=== PATIENT | female | born 1970 | race Caucasian/White ===

== ENCOUNTER 2019-04-12 08:38 | Emergency (ER) | payer OTHER, SELFPAY ==
[2019-04-12] VITALS (13 sets, daily range): BP systolic 90–147; BP diastolic 61–75; PULSE 48–68; RESP 9–19; TEMP 36.6; O2SAT 93–100
--- NOTE | 2019-04-12 08:57 | ED.GENADUL_ITS ---
Discharge Plan Disposition Patient Disposition: HOME Condition: Stable Discharge Details Chief Complaint: SOB Clinical Impression: COPD exacerbation Primary Care Provider: Guicho Walton ED Provider: Amor Akhtar Home Meds and New Rx's Prescriptions: New prednisone 20 mg tablet 60 mg PO DAILY 4 Days Qty: 12 RF: 0 levofloxacin 750 mg tablet 750 mg PO DAILY Qty: 5 RF: 0 Continued naproxen sodium [Aleve] 220 MG tablet 440 mg PO BID RF: 0 acetaminophen [Tylenol] 325 MG tablet 500 mg PO PRN RF: 0 cholecalciferol (vitamin D3) 1,000 UNIT capsule 1,000 unit PO DAILY RF: 0 magnesium oxide 500 MG capsule 500 mg PO DAILY RF: 0 bupropion HCl [Wellbutrin SR] 150 mg tablet sustained-release 12 hr 150 mg PO DAILY Qty: 90 RF: 3 albuterol sulfate [ProAir HFA] 90 mcg/actuation HFA aerosol inhaler 1 - 2 puff Inhalation Q6H PRN Qty: 1 RF: 1 loratadine 10 MG tablet 10 mg PO DAILY RF: 0 calcium carbonate 500 MG tablet,chewable 500 mg CH PRN PRNRF: 0 Discharge Instructions Instructions: COPD (Chronic Obstructive Pulmonary Disease) (ED) Additional Instructions: follow up with your primary care provider within 1-2 weeks if you feel you are becoming more ill, having worsening shortness of breath or severe chest pain return to the emergency department Medical Decision Making 49 yo female with hx of gerd, copd, chronic smoker, who comes in with chief complaint of shortness of breath and productive cough for 2 days that has been worsening. She is speaking in full sentences on exam in no distress but is noted to have diffuse wheezing on exam likely from a copd exacerbation, will tx with neb and steroids and reassess. She is wells low and perc negative so doubt Pe at this time. Will obtain cxr to eval for possible infiltrate. pt remains stable and feels much better and only has mild apical wheezing on exam. Labs unremarkable. Will tx as copd exacerbation and advised f/u with pcp and return precautions given Differential Diagnosis chf, copd, asthma, pna Medical Records Medical records reviewed: Yes I reviewed the patient's medical records. Imaging Data Radiologic Study: Attestation: I personally reviewed and interpreted this imaging study as follows: Imaging: X-Ray My impression: no acute findings Lab Data Lab results reviewed: Yes I reviewed the patient's lab results. ECG Data Attestation: I personally reviewed and interpreted this ECG (s) as follows: Prior ECG tracings: not available for review Interpretation: sinus rhythm, rate of 56, qtc 434, no acute ischemic st t wave findings HPI General Mode of arrival: wheelchair . Date/Time Provider Initiated Documentation: 04/12/19 08:48 . Limitations to Documentation: no limitations . Information obtained by: patient . History of Present Illness 49 year old F presents to the emergency department with the chief complaint of short of breath, described as moderate, Patient started experiencing this day(s) (2) and it has been constant. No relieving factors improve symptom(s), No exacerbating factors reported . Patient notes cough. Patient did receive the following treatments prior to arrival, other (inhaler) Related Data Home Medications Medication Instructions Recorded Confirmed naproxen sodium [Aleve] 440 mg PO BID tab-cap 09/04/16 03/27/19 calcium carbonate 500 mg CH PRN PRN 11/18/16 03/27/19 loratadine 10 mg PO DAILY 11/18/16 03/27/19 acetaminophen [Tylenol] 500 mg PO PRN tab-cap 04/04/18 03/27/19 cholecalciferol (vitamin D3) 1,000 unit PO DAILY 04/04/18 03/27/19 magnesium oxide 500 mg PO DAILY 04/04/18 03/27/19 bupropion HCl SR 150 mg tablet,12 150 mg PO DAILY #90 tab-cap 09/30/18 03/27/19 hr sustained-release albuterol sulfate HFA 90 1 - 2 puff INHALATION Q6H PRN #1 10/12/18 03/27/19 mcg/actuation aerosol inhaler inhaler levofloxacin 750 mg PO DAILY #5 tab 04/12/19 prednisone 60 mg PO DAILY 4 Days #12 tab 04/12/19 Previous Rx's Medication Instructions Recorded bupropion HCl SR 150 mg tablet,12 150 mg PO DAILY #90 tab-cap 09/30/18 hr sustained-release albuterol sulfate HFA 90 1 - 2 puff INHALATION Q6H PRN #1 10/12/18 mcg/actuation aerosol inhaler inhaler levofloxacin 750 mg PO DAILY #5 tab 04/12/19 prednisone 60 mg PO DAILY 4 Days #12 tab 04/12/19 Allergies Allergy/AdvReac Type Severity Reaction Status Date / Time sertraline HCl [From Zoloft] Allergy Severe Anaphylaxsi Unverified 04/04/18 09:09 s adhesive tape Allergy Skin Rash Unverified 04/04/18 09:09 ibuprofen AdvReac Intermediate Contraindic Unverified 04/04/18 09:09 ated morphine AdvReac Intermediate Nausea, Unverified 04/04/18 09:09 vomiting severe General Stated Complaint: SOB RUBY: 3 Review of Systems Review of Systems All systems reviewed & are unremarkable except as noted in HPI and below Constitutional Denies weakness Cardiovascular Denies chest pain Gastrointestinal Denies abdominal pain, Denies nausea and Denies vomiting Integumentary/Breasts Denies rash Neurologic Denies weakness PFSH Surgical History Cholecystectomy Hysterectomy, Laproscopic Ligation of fallopian tube Repair, ACL Rotator Cuff Repair Family History Mother Diabetes Heart disease Father No problems noted. Social History Smoking/Tobacco Use Status: Current every day Tobacco Type: cigarettes Smoking cigarettes per day: 5 Alcohol Intake: current Alcohol Intake frequency: a few times a month Alcohol type: hard liquor Drug use: Daily Substance use type: marijuana Do you feel safe at home: Yes Do you feel safe in your relationship?: Yes Exam Const General: no acute distress Orientation: alert HENMT Head: normal to inspection Ears: external ears normal General nose exam: external nose normal Mouth: moist mucous membranes Eyes General: appearance normal, both eyes and all related structures Neck Neck: normal visual inspection Resp Effort & Inspection: normal respiratory effort and able to speak in complete sentences Cardio Rate: regular rate Skin General skin exam: no rashes or lesions noted Neuro General: alert and oriented x3 Extrem General: normal to inspection Psych Mental Status: mental status grossly normal Course Vital Signs Temperature 36.6 C 04/12/19 08:45 Pulse 68 04/12/19 08:45 Respiratory Rate 18 04/12/19 08:45 Blood Pressure 147/71 H 04/12/19 08:45 Pulse Oximetry 95 04/12/19 08:45 Temperature 36.6 C 04/12/19 08:45 Temperature Source Tympanic 04/12/19 08:45 Pulse 68 04/12/19 08:45 Respiratory Rate 18 04/12/19 08:48 Respiratory Effort Labored 04/12/19 08:48 Respiratory Depth Shallow 04/12/19 08:48 Respiratory Pattern Normal 04/12/19 08:48 Blood Pressure 147/71 H 04/12/19 08:45 Pulse Oximetry 95 04/12/19 08:45 Oxygen Delivery Method Room Air 04/12/19 08:45 Oxygen Flow Rate 0 04/12/19 08:45 Pain Level 4 04/12/19 08:45 Comment 04/12/19 08:45
[2019-04-12] MEDS: Albuterol/Ipratropium 3 ML UPD VIAL UPD (09:02)
[2019-04-12] MEDS: methylPREDNISolone SUCC 125 MG VIAL IVP (09:04)
[2019-04-12] MEDS: Normal Saline 1,000 ML 1000 ML IV (09:05)
--- NOTE | 2019-04-12 09:11 | DI.RAD_ITS ---
SYMPTOM/DIAGNOSIS: COUGH, SOB PORTABLE AP CHEST: No prior comparison exams are available. The exam is somewhat limited by penetration and patient body habitus. The lungs are moderately inflated. The heart size is within normal limits for projection. The lungs are grossly clear. IMPRESSION: No acute abnormality.
[2019-04-12 09:16] LABS: Abs Immature Grans 0.03 k/cumm (0.0-0.09); Absolute Basophil Count 0.01 k/cumm (0.0-0.2); Absolute Eosinophil Count 0.12 k/cumm (0.0-0.7); Absolute Lymphocyte Count 1.94 k/cumm (1.2-3.4); Absolute Monocyte Count 0.68 k/cumm (0.11-0.7); Absolute Neutrophil Count 4.46 k/cumm (1.2-6.7); Basophils % 0.1; Eosinophils % 1.7; HCT 38.8 % (36.0-46.0); HGB 12.6 g/dL (12.0-15.5); Immature Grans % 0.4; Lymphocytes % 26.8; Mean Corp. HGB Concentration 32.5 g/dL (32.0-36.0); Mean Corpuscular Hemoglobin 29.6 pg (27.0-33.0); Mean Corpuscular Volume 91.1 fL (80-95); Mean Platelet Volume 9.9 fL (8.0-11.0); Monocytes % 9.4; Neutrophils % 61.6; Platelet Count 298 x1000/uL (130-400); RBC 4.26 m/cumm (4.00-5.20); White Blood Cell Count 7.24 k/cumm (4.4-10.8)
[2019-04-12 09:32] LABS: ALT 43 U/L (12-78); AST 25 U/L (15-37); Albumin 3.5 g/dL (3.4-5.0); Alkaline Phosphatase 73 U/L (46-116); Anion Gap 11.6 mmol/L (3-11); BUN 14 mg/dL (7-18); Bilirubin, Total 0.3 mg/dL (0.2-1.0); CO2 23.4 mmol/L (21.0-32.0); CREATININE 0.79 mg/dL (0.55-1.02); Calcium 9.1 mg/dL (8.5-10.1); Chloride 104 mmol/L (98-107); Glucose 107 mg/dL (70-100); Magnesium 1.9 mg/dL (1.8-2.4); Potassium 3.9 mmol/L (3.5-5.1); Sodium 139 mmol/L (136-145); Total Protein 7.5 g/dL (6.4-8.2)
[2019-04-12 09:34] LABS: Troponin I < 0.02 ng/mL (0.00-0.06)
== END 2019-04-12 10:08 | disposition home or self-care (01) ==
PROVIDERS: Emergency Provider Emergency Medicine; PCP Family Medicine
DX: J44.0 Chronic obstructive pulmonary disease with (acute) lower respiratory infection (principal); F17.210 Nicotine dependence, cigarettes, uncomplicated
CPT/HCPCS: 36415; 80053; 93005; 94640; 96361; 96374; 99285; 71045; 83735; 84484; 85025; 93010; J2930; J7620

== ENCOUNTER 2019-07-28 03:50 | Outpatient (CLI) | payer OTHER, SELFPAY ==
[2019-07-28 11:22] LABS: Hemoglobin A1C 6.9 % (4.5-6.2)
[2019-07-28 11:28] LABS: Glucose 98 mg/dL (70-100); TSH (W/Ref FT4) 2.55 uIU/mL (0.36-3.74)
== END 2019-07-28 04:10 ==
PROVIDERS: PCP Family Medicine; Visit Provider Family Medicine
DX: R63.5 Abnormal weight gain (principal)
CPT/HCPCS: 36415; 82947; 83036; 84443

== ENCOUNTER 2019-10-06 09:35 | Outpatient (CLI) | payer OTHER, SELFPAY | END 2019-10-06 09:55 | PROVIDERS: PCP Family Medicine; Visit Provider Physician Assistant | DX: R69 Illness, unspecified (principal) ==

== ENCOUNTER 2019-12-01 09:19 | Outpatient (CLI) | payer OTHER, SELFPAY ==
--- NOTE | 2019-12-01 09:15 | DI.RAD_ITS ---
EXAM: XR STANDING ALIGNMENT CLINICAL HISTORY: f/u bilateral knee OA TECHNIQUE: COMPARISON: No exams were available for comparison FINDINGS: AP views of the lower extremities were obtained for leg length determination. Femoral heads are not included on the views obtained. There are moderate degenerative changes involving the joints of both knees, most marked involving the medial tibiofemoral joint on left. IMPRESSION:
--- NOTE | 2019-12-01 09:29 | DI.RAD_ITS ---
EXAM: XR KNEE LT 2V AP,LAT CLINICAL HISTORY: f/u L knee OA TECHNIQUE: COMPARISON: LEFT KNEE 3 VIEW COMPLETE from 01/28/2015 FINDINGS: Two views were obtained. There is medial subluxation of the femur on the tibia. There are prominent hypertrophic degenerative changes involving all 3 joints of the knee. No other significant bony abn ormality seen. IMPRESSION:
--- NOTE | 2019-12-01 09:31 | DI.RAD_ITS ---
EXAM: XR KNEE RT 2V AP,LAT CLINICAL HISTORY: f/u bilateral knee OA TECHNIQUE: COMPARISON: XR KNEE LT 2V AP,LAT from 12/01/2019 FINDINGS: Two views were obtained. There is probable narrowing of the cartilaginous joint spaces of all 3 join ts of the knee. Prominent marginal osteophytes noted involving all 3 joints as well. No other signi ficant bony abnormality seen. IMPRESSION: Severe multi compartment DJD.
== END 2019-12-01 09:39 ==
PROVIDERS: PCP Family Medicine; Visit Provider Student in an Organized Health Care Education/Training Program
DX: M17.0 Bilateral primary osteoarthritis of knee (principal)
CPT/HCPCS: 73560; 77073

== ENCOUNTER 2020-01-08 08:54 | Emergency (ER) | payer OTHER, SELFPAY ==
[2020-01-08 09:03] VITALS: BP 140/90; PULSE 72; RESP 16; TEMP 36.4; O2SAT 97
--- NOTE | 2020-01-08 09:30 | DI.RAD_ITS ---
EXAM: XR HAND LT COMPLETE and XR wrist left complete INDICATION: trauma, pain 5 metacarpal and 5th digit. COMPARISON: XR WRIST LT COMPLETE from 01/08/2020 TECHNIQUE: 2D digital imaging was performed. FINDINGS: On the lateral view of the hand, there is a lucency through the triquetrum on the dorsum of the wrist . This is best appreciated on the lateral view. The findings raise a question of a nondisplaced tri quetral fracture. No other fracture or dislocation is seen in the left hand or wrist. The soft tiss ues are unremarkable. There are mild degenerative changes seen at the 1st carpometacarpal joint. IMPRESSION: Question of a nondisplaced fracture involving the triquetrum suggested on the lateral view of the bess d. Findings were discussed with the emergency department on the date of the examination.
--- NOTE | 2020-01-08 09:30 | DI.RAD_ITS ---
EXAM: XR SHOULDER RT COMPLETE 2+V INDICATION: trauma, shoulder pain. COMPARISON: RIGHT SHOULDER 1 VIEW from 08/16/2014 TECHNIQUE: 2D digital imaging was performed. FINDINGS: No acute fracture or dislocation is seen. Postsurgical changes are seen in the humeral head. There is resection of the distal clavicle. Glenohumeral joint is unremarkable. Soft tissues are unremarka ble. IMPRESSION: No acute fracture or dislocation.
--- NOTE | 2020-01-08 09:38 | ED.GENADUL_ITS ---
Discharge Plan Disposition Patient Disposition: HOME Condition: Stable Discharge Details Chief Complaint: Trauma Clinical Impression: Contusion, Left wrist sprain Primary Care Provider: Guicho Walton ED Provider: Brenna Cheng Home Meds and New Rx's Prescriptions: Continued calcium carb-mag ox-zinc gluc 333-133-5 mg tablet PO DAILY RF: 0 naproxen sodium [Aleve] 220 mg capsule 440 mg PO BID RF: 0 bupropion HCl [Wellbutrin SR] 150 mg tablet sustained-release 12 hr 150 mg PO Q12H Qty: 180 RF: 3 acetaminophen [Tylenol] 325 MG tablet 500 mg PO PRN RF: 0 cholecalciferol (vitamin D3) 1,000 UNIT capsule 1,000 unit PO DAILY RF: 0 albuterol sulfate [ProAir HFA] 90 mcg/actuation HFA aerosol inhaler 1 - 2 puff Inhalation Q6H PRN Qty: 1 RF: 1 loratadine 10 MG tablet 10 mg PO DAILY RF: 0 ascorbic acid (vitamin C) [Vitamin C] 500 mg Tablet 500 mg PO DAILY RF: 0 magnesium 250 mg Tablet 250 mg PO DAILY RF: 0 Discharge Instructions Instructions: Contusion in Adults (ED), Wrist Sprain (ED) Additional Instructions: Please return immediately to the emergency department if you develop any new or worsening symptoms, if your condition does not improve as expected, or if you become otherwise concerned. It is extremely important that you call soon as possible to make an appointment to be seen in follow-up for this visit by your primary care doctor and also by your orthopedic surgeon. Referrals: Alex Collier MD [ [facility] STAFF PHYSICIAN] - Discharge Data Discharge Date/Time-TO BE ENTERED AT DEPARTURE: 01/08/20 12:02 Medical Decision Making Sofi Do is a 49-year-old woman with h/o copd, depression presenting to the emergency department with right shoulder pain, neck pain, right elbow pain, left wrist pain, left hand pain, right knee pain after fall. On exam patient is very well and nontoxic-appearing. No bony cervical spine tenderness palpation, full range of motion of the neck. Elbow and knee nontender to palpation with full range of motion. Shoulder diffusely mildly tender to palpation without focality, range of motion somewhat limited secondary to pain. Wrist tender to palpation over ulnar aspect, hand tender over fifth metacarpal and fifth digit. Normal range of motion of digit and wrist. No overlying skin changes to any of the extremities except for abrasion to right elbow, tetanus up-to-date. Benign cardiopulmonary exam. Concern for possible fracture versus soft tissue injury of shoulder, wrist, hand. Exam/history at this time is not consistent with bony injury to the knee, elbow, or cervical spine, significant trauma to the head/thorax/abdomen, or nonmechanical etiology of fall, other acute emergent life-threatening process. Plan for x-ray shoulder, wrist, hand. Per radiology possible triquetrum fracture on wrist/hand x-ray. This is not necessarily correlate clinically with patient's exam. I discussed patient presentation results with Dr. Collier of orthopedic surgery, who reviewed x- ray. Dr. Collier does not feel that x-ray finding represents fracture. He requests commercial wrist splint, outpatient follow-up with orthopedics. I had a lengthy discussion with Patient regarding return to emergency department precautions, home care, and importance of outpatient follow-up. Pt verbalizes understanding of the plan and is amenable. Patient discharged to home with clear plan for outpatient follow-up. All questions were answered. Disposition decision was made weighing the risks and benefits of hospitalization versus outpatient treatment, the risk for further decompensation, and the patient's wishes. Medical Records Medical records reviewed: Yes I reviewed the patient's medical records. Imaging Data Radiologic Study: Attestation: I personally reviewed and interpreted this imaging study as follows: Radiologist's impression: EXAM: XR HAND LT COMPLETE and XR wrist left complete INDICATION: trauma, pain 5 metacarpal and 5th digit. COMPARISON: XR WRIST LT COMPLETE from 01/08/2020 TECHNIQUE: 2D digital imaging was performed. FINDINGS: On the lateral view of the hand, there is a lucency through the triquetrum on the dorsum of the wrist. This is best appreciated on the lateral view. The findings raise a question of a nondisplaced triquetral fracture. No other fracture or dislocation is seen in the left hand or wrist. The soft tissues are unremarkable. There are mild degenerative changes seen at the 1st carpometacarpal joint. IMPRESSION: Question of a nondisplaced fracture involving the triquetrum suggested on the lateral view of the hand. EXAM: XR SHOULDER RT COMPLETE 2+V INDICATION: trauma, shoulder pain. COMPARISON: RIGHT SHOULDER 1 VIEW from 08/16/2014 TECHNIQUE: 2D digital imaging was performed. FINDINGS: No acute fracture or dislocation is seen. Postsurgical changes are seen in the humeral head. There is resection of the distal clavicle. Glenohumeral joint is unremarkable. Soft tissues are unremarkable. IMPRESSION: No acute fracture or dislocation. HPI General Mode of arrival: ambulatory . Date/Time Provider Initiated Documentation: 01/08/20 09:05 . Limitations to Documentation: no limitations . Information obtained by: patient, RN notes reviewed and old records reviewed . HPI Narrative: Sofi Do is a 49 y/o woman with h/o copd, depression presenting to the emergency department with shoulder pain, neck pain, elbow pain, wrist pain, hand pain, knee pain after fall. Patient reports that she was at work this morning, and was bringing trash outside to put in dumpster when she slipped and fell on ice. Patient reports the fall was mechanical, and she had no preceding symptoms. Patient reports that she initially fell against a wall, and then fell to the ground. She denies any loss of consciousness and states that she remembers the event in its entirety. Patient reports that she hit her right knee and right shoulder, and landed on her left wrist/hand. She reports aching pain in her right shoulder, right elbow, right knee, left hand, left wrist, and right neck. When asked her worst pain is, patient reports right shoulder and left wrist/hand. She denies any other pain. Fall occurred at approximately 730 this morning. Patient reports that she has been walking without issue since that time. Patient reports that she was previously in her usual state of health. She denies fevers, vomiting, diarrhea, numbness, weakness, rash. Patient reports shortness of breath and cough at baseline, secondary to COPD. Patient reports she has been eating and drinking as usual. Related Data Home Medications Medication Instructions Recorded Confirmed loratadine 10 mg PO DAILY 11/18/16 01/08/20 acetaminophen [Tylenol] 500 mg PO PRN tab-cap 04/04/18 01/08/20 cholecalciferol (vitamin D3) 1,000 unit PO DAILY 04/04/18 01/08/20 albuterol sulfate 90 mcg/actuation 1 - 2 puff INHALATION Q6H PRN #1 10/12/18 01/08/20 aerosol inhaler inhaler bupropion HCl 150 mg tablet,12 hr 150 mg PO Q12H #180 tab-cap 07/25/19 01/08/20 sustained-release calcium carbonate 333 mg-magnesium tab PO DAILY tab 07/25/19 12/01/19 oxide 133 mg-zinc gluc 5 mg tablet naproxen sodium 220 mg capsule 440 mg PO BID cap 07/25/19 01/08/20 ascorbic acid (vitamin C) [Vitamin 500 mg PO DAILY 01/08/20 01/08/20 C] magnesium 250 mg PO DAILY 01/08/20 01/08/20 Previous Rx's Medication Instructions Recorded albuterol sulfate 90 mcg/actuation 1 - 2 puff INHALATION Q6H PRN #1 10/12/18 aerosol inhaler inhaler bupropion HCl 150 mg tablet,12 hr 150 mg PO Q12H #180 tab-cap 07/25/19 sustained-release Allergies Allergy/AdvReac Type Severity Reaction Status Date / Time sertraline HCl [From Zoloft] Allergy Severe Anaphylaxsi Unverified 01/08/20 09:07 s adhesive tape Allergy Skin Rash Unverified 01/08/20 09:07 ibuprofen AdvReac Intermediate Contraindic Unverified 01/08/20 09:07 ated morphine AdvReac Intermediate Nausea, Unverified 01/08/20 09:07 vomiting severe General Stated Complaint: Trauma RUBY: 3 Review of Systems Narrative: Constitutional: denies fevers Eyes: denies eye pain ENT: denies ear pain, dental pain, sore throat Cardiovascular: denies chest pain Respiratory: denies SOB, cough GI: denies abdominal pain, vomiting, diarrhea : denies flank pain MSK: denies back pain, myalgias, reports neck pain, right shoulder pain, right elbow pain, left wrist pain, left hand pain, right knee pain Skin: denies rash Neuro: denies headaches, numbness, weakness [facility] Surgical History (Updated 04/20/19 @ 09:18 by uHy Gonsalez) Cholecystectomy Hysterectomy, Laproscopic 2006; OVARIES REMAIN Ligation of fallopian tube Repair, ACL RIGHT Rotator Cuff Repair 08/07/14; RIGHT Family History Mother Diabetes Heart disease Father , SUICIDE No problems noted. Social History Smoking/Tobacco Use Status: Current every day Tobacco Type: cigarettes Alcohol Intake: current Alcohol Intake frequency: a few times a week Alcohol type: hard liquor Drug use: Daily Substance use type: marijuana Current gender identity: female Do you feel safe at home: Yes Do you feel safe in your relationship?: Yes Exam Narrative Exam Narrative: Constitutional: well and [id number], pleasant, conversing normally HENT: head atraumatic/normocephalic/normal inspection, mucous membranes moist Eyes: conjunctiva normal, sclera normal, pupils 3mm b/l Neck: no stridor, full painless ROM, trachea midline, cervical spine nontender to palpation/no crepitus/no deformity, no left paraspinal tenderness palpation, positive left paraspinal tenderness to palpation Resp: normal work of breathing, LCTAB Cardio: normal rate, normal rhythm, no murmur appreciated Skin: warm, dry, normal color, no rash Neuro: alert, not altered, grossly non-focal, normal tone Ext: no edema, right elbow and knee nontender to palpation with full range of motion. Right shoulder diffusely mildly tender to palpation without focality, range of motion somewhat limited secondary to pain. Left wrist tender to palpation over ulnar aspect, left hand hand tender over fifth metacarpal and fifth digit. No snuffbox tenderness to palpation. normal range of motion of digit and wrist. No overlying skin changes to any of the extremities except 1 x 1 cm superficial abrasion to right elbow. Radial pulses intact and symmetric. Normal sensation bilateral upper extremities. Psych: normal mood, normal affect, normal behavior Course Vital Signs Vital signs: Vital Signs Temperature 36.4 C L 01/08/20 09:03 Pulse 72 01/08/20 09:03 Respiratory Rate 16 01/08/20 09:03 Blood Pressure 140/90 01/08/20 09:03 Pulse Oximetry 97 01/08/20 09:03 Temperature 36.4 C L 01/08/20 09:03 Temperature Source Skin 01/08/20 09:03 Pulse 72 01/08/20 09:03 Respiratory Rate 16 01/08/20 09:03 Respiratory Effort Non-Labored 01/08/20 09:03 Blood Pressure 140/90 01/08/20 09:03 Blood Pressure Position Sitting 01/08/20 09:03 Pulse Oximetry 97 01/08/20 09:03 Oxygen Delivery Method Room Air 01/08/20 09:03 Oxygen Flow Rate 0 01/08/20 09:03 Pain Level 7 01/08/20 09:03
[2020-01-08 12:00] VITALS: BP 133/94; PULSE 68; RESP 16; O2SAT 100
== END 2020-01-08 12:02 | disposition home or self-care (01) ==
PROVIDERS: Emergency Provider Student in an Organized Health Care Education/Training Program; PCP Family Medicine
DX: S63.502A Unspecified sprain of left wrist, initial encounter (principal); S40.011A Contusion of right shoulder, initial encounter; S50.311A Abrasion of right elbow, initial encounter; W00.0XXA Fall on same level due to ice and snow, initial encounter; Y99.0 Civilian activity done for income or pay; J44.9 Chronic obstructive pulmonary disease, unspecified; F17.210 Nicotine dependence, cigarettes, uncomplicated
CPT/HCPCS: 29125; 99284; 73030; 73110; 73130; L0172; L3908

== ENCOUNTER 2020-01-19 09:59 | Outpatient (CLI) | payer OTHER, SELFPAY ==
--- NOTE | 2020-01-19 09:15 | DI.RAD_ITS ---
EXAM: XR WRIST LT LIMITED INDICATION: f/u L wrist pain s/p fall. COMPARISON: XR WRIST LT COMPLETE from 01/08/2020 XR HAND LT COMPLETE from 01/08/2020 TECHNIQUE: 2D digital imaging was performed. FINDINGS: On the lateral view, there is again noted to be an apparent fracture through the posterior aspect of the triquetrum. It is nondisplaced. Degenerative changes are seen at the 1st carpal metacarpal deonte nt. DATA REPOSITORY: RADIATION DOSE DELIVERED:
== END 2020-01-19 10:19 ==
PROVIDERS: PCP Family Medicine; Visit Provider Student in an Organized Health Care Education/Training Program
DX: M25.532 Pain in left wrist (principal); S62.115D Nondisplaced fracture of triquetrum [cuneiform] bone, left wrist, subsequent encounter for fracture with routine healing; M18.12 Unilateral primary osteoarthritis of first carpometacarpal joint, left hand
CPT/HCPCS: 73100

== ENCOUNTER 2020-02-23 00:25 | Outpatient (CLI) | payer OTHER, SELFPAY ==
--- NOTE | 2020-02-23 06:15 | DI.MRI_ITS ---
EXAM: MR UPPER JOINT RT WO CLINICAL HISTORY: S/P FALL,FULL THICKNESS ROTATOR CUFF TEAR,M75.120, SHOULDER PAIN. TECHNIQUE: Multiplanar multisequence MRI was performed. COMPARISON: Plain films dated 08 January 2020 which shows metallic anchors in the humeral head.. FINDINGS: The exam is limited by patient body habitus and metallic artifact from prior surgery. There is no fracture or contusion pattern. There has been resection of the distal clavicle. There is mild spurring at the undersurface of the a cromion. There is a small amount of fluid in the subacromial subdeltoid bursa. No subcoracoid or glenohumeral joint effusion is present. The supraspinatus tendonis difficult to evaluate due to metallic artifact. There is no evidence of a full-thickness tear or retraction. There is mild supraspinatus and infraspinatus muscle atrophy. The infraspinatus tendon is intact. The subscapularis and teres minor tendons are normal. The biceps tendon is normally located. The anchor is well maintained. The labrum is grossly within normal limits. IMPRESSION: Limited exam due to patient body habitus and metallic artifact. There is no full-thickness tear of t he supraspinatus tendon. A partial tear cannot be excluded. Mild muscular atrophy of this supraspin atus and infraspinatus is seen. DATA REPOSITORY:
== END 2020-02-23 00:45 ==
PROVIDERS: PCP Family Medicine; Visit Provider Student in an Organized Health Care Education/Training Program
DX: M25.511 Pain in right shoulder (principal); M62.511 Muscle wasting and atrophy, not elsewhere classified, right shoulder; M75.121 Complete rotator cuff tear or rupture of right shoulder, not specified as traumatic
CPT/HCPCS: 73221

== ENCOUNTER 2020-10-02 08:26 | Outpatient (CLI) | payer OTHER, SELFPAY ==
[2020-10-06 11:28] LABS: Patient Race White; SARS-CoV-2 RNA Undetected (Undetected); SARS-CoV-2 Specimen Source Nasal
== END 2020-10-02 08:46 ==
PROVIDERS: PCP Family Medicine; Visit Provider Family Medicine
DX: R51.9 Headache, unspecified (principal); R68.83 Chills (without fever)
CPT/HCPCS: U0003

== ENCOUNTER 2020-12-27 00:59 | Outpatient (CLI) | payer OTHER, SELFPAY ==
[2020-12-28 11:32] LABS: COVID-19 RT-PCR UVMMC Result Negative (Negative)
== END 2020-12-27 01:00 | disposition home or self-care (01) ==
LOC: LBO 01:00
PROVIDERS: PCP Family Medicine; Visit Provider Student in an Organized Health Care Education/Training Program
DX: Z20.822 Contact with and (suspected) exposure to COVID-19 (principal); Z01.818 Encounter for other preprocedural examination
CPT/HCPCS: U0003

== ENCOUNTER 2021-01-01 07:58 | Day surgery (SDC) | payer OTHER, SELFPAY ==
[2021-01-01] VITALS (9 sets, daily range): BP systolic 108–132; BP diastolic 66–93; PULSE 54–76; RESP 16–23; TEMP 36–36.7; O2SAT 94–100
[2021-01-01] MEDS: Lactated Ringers 1,000 ML 80 ML IV (08:43)
--- NOTE | 2021-01-01 09:57 | PDOC.DSDIS_ITS ---
Discharge Plan Disposition Patient Disposition: HOME Condition: Good Discharge Details Reason For Visit: Right shoulder arthroscopy Attending Provider: Alex Collier Primary Care Provider: Guicho Walton Home Meds and New Rx's Prescriptions: New hydrocodone-acetaminophen 5-325 mg tablet 1 tab PO Q6H PRN (Reason: pain) Qty: 14 RF: 0 acetaminophen 500 mg capsule 500 mg PO Q6H PRN (Reason: pain) Qty: 30 RF: 0 ibuprofen 600 mg tablet 600 mg PO TID PRN (Reason: pain) Qty: 30 RF: 0 Continued potassium chloride 10 mEq capsule, extended release 10 meq PO DAILY RF: 0 cholecalciferol (vitamin D3) 1,000 UNIT capsule 1,000 unit PO DAILY RF: 0 albuterol sulfate [ProAir HFA] 90 mcg/actuation HFA aerosol inhaler 1 - 2 puff Inhalation Q6H PRN Qty: 1 RF: 1 bupropion HCl [Wellbutrin SR] 150 mg tablet sustained-release 12 hr 150 mg PO Q12H Qty: 180 RF: 3 loratadine 10 MG tablet 10 mg PO DAILY RF: 0 ascorbic acid (vitamin C) [Vitamin C] 500 mg Tablet 500 mg PO DAILY RF: 0 magnesium 250 mg Tablet 250 mg PO DAILY RF: 0 omeprazole 20 mg Tablet,Delayed Release (Dr/Ec) 20 mg PO DAILY RF: 0 Discontinued naproxen sodium [Aleve] 220 mg capsule 440 mg PO DAILY RF: 0 acetaminophen [Tylenol] 325 MG tablet 500 mg PO PRN RF: 0 Discharge Instructions Stand Alone Forms: Amira Conrad w/RCR Referrals: Alex Collier MD [ [facility] STAFF PHYSICIAN] - Equipment/Supplies: Sling Activity:: Elevate Remove Dressings/Wound Care:: 72 hours Shower/Bathe:: 72 hours Diet:: As Tolerated Discharge Orders Discharge Orders: Discharge Order (Routine); Ordered 01/01/21 Ordered By: Bam Velasquez DS: Diagnosis Discharge Diagnosis (1) Right rotator cuff tendonitis: Status: Acute
[2021-01-01] MEDS: ceFAZolin 3,000 MG in Normal Saline 100 ML 200 MG IVPB (10:41)
[2021-01-01] MEDS: EPINEPHrine 1 MG/ML AMP pres-free (12:19)
--- NOTE | 2021-01-01 12:27 | ROE_ITS ---
Date of service: 01/01/21 Time of Service: 12:34 Operative Note Operative Note DATE OF PROCEDURE: 01/01/21 PRE-OP DIAGNOSIS: Right Rotator Cuff Tendinitis, BIceps Tendinitis POST-OP DIAGNOSIS: other (Right Rotator Cuff Tear and Right SLAP Tear) PROCEDURE: - Arthroscopic Rotator Cuff Repair - Extensive debridement of anterior and posterior glenohumeral joint and rotator cuff - Biceps Tenotomy SURGEON: Alex Collier [employer] CONTRACTOR: Bam Velasquez ANESTHESIA: GETA and regional ESTIMATED BLOOD LOSS: 0 PATHOLOGY: none sent COMPLICATIONS: None Patient was transported to: PACU Patient's condition: stable Indications: I have seen Sofi in clinic for a painful shoulder. Pathology was confirmed based on MRI and exam findings. Nonoperative measures were exhausted but disability and pain persisted. I discussed shoulder arthroscopy and procedures. I reviewed the risks of the procedures to include, but not limited to, bleeding, infection, pain, stiffness, damage to nerves or vessels, recurrence, hardware failure, blood clot. Despite these risks, the patient elected to proceed. Findings: A diagnostic arthroscopy was performed with the following findings: Articular Side - Glenohumeral Joint: No significant arthritic changes - Labrum: Diffuse tearing of the superior labrum from anterior to posterior approximately 10:00 to 1:00 with involvement of the biceps anchor - Cuff: Some chronic changes in the rotator cuff but a clear tear off of the greater tuberosity with residual suture material present - Biceps: Mild inflammatory changes Subacromial Side - Bursal: Dense bursal tissue seen more posteriorly and anteriorly. Previous deltoid repair over the anterior acromion present and in good condition - Rotator Cuff: Complete tear of the supraspinatus -No significant spurring Procedure Description: Sofi was greeted in the preoperative holding area where the correct side was identified and marked. The consent was reviewed with the patient and signed. The history and physical was updated. All questions were answered. She was taken back to the PACU for administration of an intrascalene nerve block. Sofi was then taken to the operating room. The patient was placed into the supine position on the operating room table. A general anesthetic was administered. They was then positioned in the beach chair position. All bony prominences were well padded. The head was placed in a foam cigar head perforator in a neutral position. Prophylactic antibiotics in the form of cefazolin were administered. The right arm/shoulder was then prepped with Chloraprep and draped in a standard fashion with stockinette and shoulder drape. A timeout to confirm correct identity, side and site, procedure, allergies, anesthesia, and medical concerns was performed. The arm was placed into a pneumatic borjas, [id number]. The shoulder arthroscopy was then performed. The glenohumeral joint was injected with 20 cc of normal saline with good flow back. A standard posterior portal was made and the joint was entered atraumatically with a blunt arthroscope. Once inside we had good visualization of the structures of the glenohumeral joint. An anterior portal was established with spinal needle localization. A 6.5 mm cannula was inserted. A probe was then used to perform a diagnostic arthroscopy. There is noted to be no significant cartilage damage of the glenoid humeral joint. The labrum was torn from anterior to posterior. There was some involvement of the attachment to the glenoid but diffuse fraying, likely degenerative in nature, throughout the superior labrum involving the anchor. There were no loose bodies in the inferior pouch. The superior rotator cuff was thinned and had a more glossy appearance than usual, likely secondary to previous rotator cuff repair. However, this tendon edge was clearly torn off of the tuberosity with exposed tuberosity footprint and suture material from the previous repair in 2013.. The biceps tendon was without tearing. The subscapularis was intact. I performed a biceps tenotomy using the electrocautery wand. I then debrided the superior labrum from posterior to anterior cleaning any frayed tissue. Using the shaver I also roughened the superior surface of the glenoid to promote some scarring and healing of the superior labrum. The undersurface of the rotator cuff was debrided posteriorly up to the point of the tearing. From within the joint I debrided the undersurface of the rotator cuff remnant. The rotator cuff did not have its normal appearance, again likely due to previous surgery. However, there is no significant tearing seen within the tendon body itself. I debrided the tear from within and then removed the arthroscopy equipment. The arthroscope was then inserted into the subacromial space. The 6.5 mm cannula was placed lateral to the CA ligament. The previous repair of the deltoid was seen against the acromion without gapping without any defect. The suture materials were seen in good position and all this was left intact. A complete bursectomy is performed anteriorly, posteriorly, and laterally with electrocautery and shaver. This had excellent exposure of the rotator cuff. The bursal side rotator cuff identified a clear tear of the supraspinatus tendon. There was no significant spurring. Using a spinal needle a posterior lateral and anterolateral portals were established. The posterior portal became the viewing portal and the anterior portal became the working portal. The tuberosity was roughened with the shaver to promote bone healing. I was cautious because the previous surgery to make sure I did not lose any real estate for potential anchor placement. The tendon material was easily reducible down to the tuberosity without any difficulty. I then placed two 4.5 mm Healix advanced anchors at the medial aspect of the footprint next to the articular margin. These were placed without difficulty. I then passed the sutures through the rotator cuff tear creating for horizontal mattress sutures. These were tied from posterior to anterior reapproximating the rotator cuff tendon down to the tuberosity. There is abundant extra tissue covering the tuberosity and therefore I performed a lateral row for backup and also tendon compression against the tuberosity. 1 lateral anchor was placed anteriorly and one was placed posteriorly. Each anchor incorporated 4 suture limbs from the 4 horizontal mattress sutures. These created a bridge type construct with excellent reapproximation of the tendon down to bone. There is excellent purchase of the anchors within the tuberosity. Suture limbs were then cut. Final images were obtained. Excess fluid was evacuated. The portal sites were closed with 3-0 Monocryl. The wounds were dressed with Steri-Strips, 4 x 4's, ABDs, Medipore tape. A sling was applied. The patient tolerated the procedure well and was returned to the PACU in a stable condition suffering no known complication.
[2021-01-01] MEDS: fentaNYL 100 MCG/2 ML VIAL IVP ×2 (13:19→13:32)
[2021-01-01] MEDS: Normal Saline Flush 10 ML SYR IV (13:23)
[2021-01-01] MEDS: HYDROmorphone 2 MG/ML VIAL IVP ×2 (13:23→13:38)
[2021-01-01] MEDS: HYDROcodone 5/Acetaminophen 325 TAB PO (14:55)
== END 2021-01-01 15:35 | disposition home or self-care (01) ==
PROVIDERS: PCP Family Medicine; Visit Provider Student in an Organized Health Care Education/Training Program
PROC: (CPT 29805; principal; 2021-01-01 10:00)
DX: S43.431A Superior glenoid labrum lesion of right shoulder, initial encounter (principal); M75.81 Other shoulder lesions, right shoulder; M25.511 Pain in right shoulder; M75.121 Complete rotator cuff tear or rupture of right shoulder, not specified as traumatic; G89.18 Other acute postprocedural pain; X58.XXXA Exposure to other specified factors, initial encounter; J44.9 Chronic obstructive pulmonary disease, unspecified; K21.9 Gastro-esophageal reflux disease without esophagitis
CPT/HCPCS: 29827; 29823; C1713; 76942; J0171; J0690; J1100; J2001; J2250; J2405; J3010

== ENCOUNTER 2021-01-02 12:02 | Emergency (ER) | payer OTHER, SELFPAY ==
[2021-01-02] VITALS (29 sets, daily range): BP systolic 132–152; BP diastolic 68–93; PULSE 48–131; RESP 8–39; TEMP 36.6; O2SAT 91–100
--- NOTE | 2021-01-02 12:00 | RT.EKG_ITS ---
APPROVED REPORT Exam: Resting ECG Patient Location: E HR:73 bpm ECG Measurements Heart Rate 73 AXIS MT 186 P 34 QRSd 91 QRS -11 QT 402 T 51 QTc 443 Conclusion Sinus rhythm...normal P axis, V-rate 60- 99 Low voltage, precordial leads...precordial leads <1.0mV
--- NOTE | 2021-01-02 12:30 | DI.RAD_ITS ---
EXAM: XR PORTABLE CHEST AP CLINICAL HISTORY: Cough, s/p surgery TECHNIQUE: 2D digital imaging was performed. COMPARISON: CR XR PORTABLE CHEST AP from 04/12/2019 FINDINGS: LUNGS: Suboptimally inflated but clear. No pleural abnormality seen. HEART: Normal. MEDIASTINUM: Normal. BONES: Unremarkable. IMPRESSION: No acute pulmonary findings. DATA REPOSITORY: RADIATION DOSE DELIVERED:
--- NOTE | 2021-01-02 12:45 | ED.GENADUL_ITS ---
Discharge Plan Disposition Patient Disposition: HOME Condition: Improving Discharge Details Clinical Impression: Atelectasis of right lung Primary Care Provider: Guicho Walton ED Provider: Silvino Kowalski Home Meds and New Rx's Prescriptions: Continued cholecalciferol (vitamin D3) 1,000 UNIT capsule 1,000 unit PO DAILY RF: 0 albuterol sulfate [ProAir HFA] 90 mcg/actuation HFA aerosol inhaler 1 - 2 puff Inhalation Q6H PRN Qty: 1 RF: 1 bupropion HCl [Wellbutrin SR] 150 mg tablet sustained-release 12 hr 150 mg PO Q12H Qty: 180 RF: 3 naproxen 250 mg Tablet 500 mg PO BID PRNRF: 0 loratadine 10 MG tablet 10 mg PO DAILY RF: 0 omeprazole 20 mg Tablet,Delayed Release (Dr/Ec) 20 mg PO DAILY RF: 0 hydrocodone-acetaminophen 5-325 mg tablet 1 tab PO Q6H PRN (Reason: pain) Qty: 14 RF: 0 acetaminophen 500 mg capsule 500 mg PO Q6H PRN (Reason: pain) Qty: 30 RF: 0 ibuprofen 600 mg tablet 600 mg PO TID PRN (Reason: pain) Qty: 30 RF: 0 Discharge Instructions Additional Instructions: Incentive spirometer at home as instructed every 2 hours. Return if you have a fever, worsening difficulty breathing, or any other acute concerns. Home to rest today. Continue your regular medications. Follow-up with orthopedics as planned. Medical Decision Making 50-year-old female who underwent a right rotator cuff repair yesterday with general anesthesia and right scalene block. States she felt somewhat poorly prior to surgery, developed a cough afterwards that is persisted through the night and has been minimally responsible to albuterol at home. No production of sputum, has not noted a fever. She has right-sided achy discomfort that is worse with deep breaths. Patient is afebrile, well-appearing and oxygenating normally on room air. She has somewhat increased respiratory rate. Concern for atelectasis, aspiration pneumonia, pneumothorax, PE. Patient had IV access established, she was given inhaled DuoNeb and referred for chest x-ray and laboratory analysis. Chest x-ray is without acute findings. Labs reveal a white count of 14, hematocrit 41, platelets 312. D-dimer elevated at 575. Chemistries including troponin are unremarkable. Given elevated D-dimer patient was referred for a CT scan of the chest which reveals right base atelectasis, no pneumonia and no pneumothorax. Patient improved with DuoNeb updraft. We will discharge her to home with incentive spirometer. She is reassured by today's findings. She is appropriate for discharge at this time. HPI General Mode of arrival: ambulatory . Date/Time Provider Initiated Documentation: 01/02/21 12:04 . Limitations to Documentation: no limitations . Information obtained by: patient . History of Present Illness 50 year old F presents to the emergency department with the chief complaint of Cough and shortness of breath, described as moderate, Quality is described as dull and constant, and is localized to the chest and right. Patient reports no radiation. Patient started experiencing this hour(s) and it has been constant. No relieving factors improve symptom(s), No exacerbating factors reported . Patient notes cough and shortness of breath; denies fever/chills. Patient did receive the following treatments prior to arrival, none Related Data Home Medications Medication Instructions Recorded Confirmed loratadine 10 mg PO DAILY 11/18/16 01/02/21 cholecalciferol (vitamin D3) 1,000 unit PO DAILY 04/04/18 01/02/21 albuterol sulfate 90 mcg/actuation 1 - 2 puff INHALATION Q6H PRN #1 03/15/20 01/02/21 aerosol inhaler inhaler bupropion HCl 150 mg tablet,12 hr 150 mg PO Q12H #180 tab-cap 09/29/20 01/02/21 sustained-release acetaminophen 500 mg PO Q6H PRN #30 cap 01/01/21 01/02/21 hydrocodone-acetaminophen 1 tab PO Q6H PRN #14 tab 01/01/21 01/02/21 ibuprofen 600 mg PO TID PRN #30 tab 01/01/21 01/02/21 omeprazole 20 mg PO DAILY 01/01/21 01/02/21 naproxen 500 mg PO BID PRN 01/02/21 01/02/21 Previous Rx's Medication Instructions Recorded albuterol sulfate 90 mcg/actuation 1 - 2 puff INHALATION Q6H PRN #1 03/15/20 aerosol inhaler inhaler bupropion HCl 150 mg tablet,12 hr 150 mg PO Q12H #180 tab-cap 09/29/20 sustained-release acetaminophen 500 mg PO Q6H PRN #30 cap 01/01/21 hydrocodone-acetaminophen 1 tab PO Q6H PRN #14 tab 01/01/21 ibuprofen 600 mg PO TID PRN #30 tab 01/01/21 Allergies Allergy/AdvReac Type Severity Reaction Status Date / Time sertraline HCl [From Zoloft] Allergy Severe Anaphylaxsi Unverified 01/02/21 12:33 s adhesive tape Allergy Skin Rash Unverified 01/02/21 12:33 morphine AdvReac Severe Nausea, Unverified 01/02/21 12:33 vomiting severe ibuprofen AdvReac Intermediate Contraindic Unverified 01/02/21 12:33 ated General Stated Complaint: SOB RUBY: 2 Review of Systems Narrative: Positive cough, no fever. Hurts to breathe on the right side of her chest. No leg pain or swelling. Had scalene blocks yesterday. Right upper extremity feels numb still. 8 systems reviewed and otherwise negative [facility] Surgical History Cholecystectomy Hysterectomy, Laproscopic 2006; OVARIES REMAIN Ligation of fallopian tube Repair, ACL RIGHT Rotator Cuff Repair 08/07/14; RIGHT Family History Mother Diabetes Heart disease Father , SUICIDE No problems noted. 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 Pleasant, well groomed, interactive. HEAD: Normocephalic, atraumatic ENT: Mucous membranes moist, oropharynx unremarkable, External ear exam unremarkable EYES: PERRL, EOMI NECK: Full ROM, no DAVE, no menigismus CHEST/RESP: Nontender, clear to auscultation bilateral, diminished bilaterally, difficult to appreciate over negative pressure fan CARDIOVASCULAR: RRR, no murmur, rub alma. 2+ Rad pulse bilateral ABDOMEN: Soft, nontender, no mass. +Bowel sounds EXT: no edema, no rash Neuro: Grossly normal neurologic exam, conversant, interactive. Psych: Speech fluent, thoughts congruent, affect normal Course Vital Signs Vital signs: Vital Signs Temperature 36.6 C 01/02/21 12:22 Pulse 67 01/02/21 12:22 Respiratory Rate 18 01/02/21 12:22 Blood Pressure 132/68 01/02/21 12:22 Pulse Oximetry 94 01/02/21 12:22 Temperature 36.6 C 01/02/21 12:22 Temperature Source Tympanic 01/02/21 12:22 Pulse 67 01/02/21 12:22 Respiratory Rate 18 01/02/21 12:22 Respiratory Effort Labored 01/02/21 12:32 Blood Pressure 132/68 01/02/21 12:22 Pulse Oximetry 94 01/02/21 12:22 Oxygen Delivery Method Room Air 01/02/21 12:22 Oxygen Flow Rate 0 01/02/21 12:22 Pain Level 3 01/02/21 12:22 Comment 01/02/21 12:22
[2021-01-02 12:46] LABS: Abs Immature Grans 0.05 10^3/uL (0.0-0.06); Absolute Eosinophil Count 0.01 10^3/uL (0.0-0.7); Absolute Lymphocyte Count 2.98 10^3/uL (1.2-3.4); Basophils % 0.1; Eosinophils % 0.1; HCT 41.9 % (36.0-46.0); HGB 13.8 g/dL (11.2-15.7); Immature Grans % 0.3; Lymphocytes % 20.6; MCH 30.5 pg (27.0-33.0); MCHC 32.9 % (32.0-36.0); MCV 92.5 fL (80-95); MPV 9.8 fL (8.0-11.0); Monocytes % 6.2; Neutrophils % 72.7; Nucleated RBC 0 %; Platelet Count 312 10^3/uL (130-400); RBC 4.53 10^6/uL (3.93-5.22); RDW 13.6 % (11.7-14.6); RDW-SD 46.6 fL; WBC 14.46 10^3/uL (4.4-10.8)
[2021-01-02 12:52] LABS: Absolute Basophil Count 0.01 10^3/uL (0.0-0.2); Absolute Neutrophil Count 10.51 10^3/uL (1.2-6.7)
[2021-01-02 13:09] LABS: ALT 31 U/L (14-59); AST 15 U/L (15-37); Albumin 3.6 g/dL (3.4-5.0); Alkaline Phosphatase 68 U/L (46-116); Anion Gap 8.9 mmol/L (3-11); BUN 13 mg/dL (7-18); Bilirubin, Total 0.3 mg/dL (0.2-1.0); CO2 27.1 mmol/L (21.0-32.0); CREATININE 0.8 mg/dL (0.55-1.02); Calcium 9.2 mg/dL (8.5-10.1); Chloride 105 mmol/L (98-107); Glucose 92 mg/dL (74-106); Potassium 4.2 mmol/L (3.5-5.1); Sodium 141 mmol/L (136-145); Total Protein 7.8 g/dL (6.4-8.2)
[2021-01-02 13:10] LABS: Troponin I < 0.05 ng/mL (<0.06)
[2021-01-02 13:21] LABS: D-Dimer 575 ng/mlFEU (<500)
[2021-01-02] MEDS: Albuterol/Ipratropium 3 ML UPD VIAL UPD (14:00)
[2021-01-02] MEDS: Omnipaque 350 MG/ML 100 ML BTL IJ (14:10)
--- NOTE | 2021-01-02 14:10 | DI.CT_ITS ---
EXAM: CT CHEST PE CTA CLINICAL HISTORY: R pleuritic pain. TECHNIQUE: Imaging Protocol: Axial CT angiography was performed with multi-slice acquisition and mu lti-planar and/or 3D reconstructions. CONTRAST MATERIAL: Intravenous: Omnipaque 350 Contrast volume:structured data in ml COMPARISON: CR XR PORTABLE CHEST AP from 01/02/2021 CR XR PORTABLE CHEST AP from 01/02/2021 FINDINGS: Exam is limited by patient body habitus and respiratory motion. No large emboli are seen. There is no evidence of aortic dissection or aneurysm. There are no pleural or pericardial effusions or evide nce of adenopathy. There are mild emphysematous changes at the lung apices. There is significant at electasis in the right lower lobe, above the diaphragm. There is mild atelectasis in the right middl e lobe. There is no evidence of pneumothorax or pneumomediastinum. The patient is status post roverto cystectomy. The visualized portions of the upper abdomen are are unremarkable. IMPRESSION: No evidence of pulmonary embolism. Significant right lower lobe atelectasis. RADIATION DOSE DELIVERED: 763.5mGy.cm Total DLP DATA REPOSITORY: All CT scans at this facility are submitted to the National Radiology Data Registry (NRDR) Dose Index Registry (DIR) with the [employer] ([employer]). RADIATION OPTIMIZATION: All CT scans at this facility use at least one of these dose optimization te chniques: automated exposure control; mA and/or kV adjustment per patient size (includes targeted exa ms where dose is matched to clinical indication); or iterative reconstruction.
[2021-01-02] MEDS: Normal Saline - Diluent 50 ML VIAL IV (14:11)
[2021-01-02] MEDS: Normal Saline Flush 10 ML SYR IVP (14:11)
[2021-01-02] MEDS: Normal Saline 1,000 ML 1000 ML IV (14:15)
== END 2021-01-02 15:41 | disposition home or self-care (01) ==
PROVIDERS: Emergency Provider Emergency Medicine; PCP Family Medicine
DX: J98.11 Atelectasis (principal); R79.1 Abnormal coagulation profile; Y83.4 Other reconstructive surgery as the cause of abnormal reaction of the patient, or of later complication, without mention of misadventure at the time of the procedure
CPT/HCPCS: 36415; 71275; 80053; 93005; 94640; 99285; 71045; 83735; 84484; 85025; 85379; 93010; 99284; J3490; J7620

== ENCOUNTER 2021-10-20 10:23 | Outpatient (CLI) | payer OTHER, SELFPAY ==
--- NOTE | 2021-10-20 09:45 | DI.RAD_ITS ---
Exam(s) XR SHOULDER RT COMPLETE 2+V EXAM: XR SHOULDER RT COMPLETE 2+V CLINICAL HISTORY: Eval R shoulder pain. TECHNIQUE: 2D digital imaging was performed. COMPARISON: CR XR SHOULDER RT COMPLETE 2+V from 01/08/2020 FINDINGS: Again noted are fastener devices in the lateral aspect of the humeral head from prior rotator cuff lara rgery and there is postsurgical widening of the AC joint again noted. Subacromial space height is un changed from 01/08/2020. Glenohumeral joint is intact. No significant narrowing. No dislocation. No osteophytes. IMPRESSION: No significant change compared to December 2000 DATA REPOSITORY: RADIATION DOSE DELIVERED:
== END 2021-10-20 10:24 | disposition home or self-care (01) ==
LOC: DIORS 10:24
PROVIDERS: PCP Family Medicine; Referring Provider Family Medicine; Visit Provider Student in an Organized Health Care Education/Training Program
DX: M25.511 Pain in right shoulder (principal)
CPT/HCPCS: 73030

== ENCOUNTER 2022-03-05 02:20 | Outpatient (CLI) | payer MEDICAID, SELFPAY ==
[2022-03-05 13:15] LABS: ESR 17 mm/hr (0-30); HCT 43.7 % (36.0-46.0); HGB 14.2 g/dL (11.2-15.7); MCH 30.1 pg (27.0-33.0); MCHC 32.5 % (32.0-36.0); MCV 92.6 fL (80-95); MPV 9.3 fL (8.0-11.0); Platelet Count 304 10^3/uL (130-400); RBC 4.72 10^6/uL (3.93-5.22); RDW 14.3 % (11.7-14.6); RDW-SD 48.8 fL; WBC 6.86 10^3/uL (4.4-10.8)
[2022-03-05 14:32] LABS: Anion Gap 9.1 mmol/L (3-11); BUN 18 mg/dL (7-18); C-Reactive Protein 0.98 mg/dL (0.0-0.3); CO2 27.9 mmol/L (21.0-32.0); Calcium 9.2 mg/dL (8.5-10.1); Chloride 102 mmol/L (98-107); Estimated GFR 58.22 (mL/min/1.73m2); Glucose 97 mg/dL (74-106); Potassium 4.8 mmol/L (3.5-5.1); Sodium 139 mmol/L (136-145)
[2022-03-05 14:51] LABS: Calculated LDL 100 mg/dL (<100); Cholesterol 192 mg/dL (<200); HDL Cholesterol 65 mg/dL (40-60); Triglyceride 137 mg/dL (<150)
== END 2022-03-05 02:21 | disposition home or self-care (01) ==
LOC: LBO 02:20
PROVIDERS: Student in an Organized Health Care Education/Training Program; PCP Family Medicine; Visit Provider Family Medicine
DX: Z00.00 Encounter for general adult medical examination without abnormal findings (principal); M25.511 Pain in right shoulder; Z98.890 Other specified postprocedural states
CPT/HCPCS: 36415; 80048; 80061; 85027; 85652; 86140

== ENCOUNTER → 2022-03-09 01:10 | Outpatient (CLI) | payer MEDICAID, SELFPAY ==
--- NOTE | 2022-03-09 07:15 | DI.MAMMO_ITS ---
Exam(s) MAMMO SCREENING EXAM: MAMMO SCREENING CLINICAL HISTORY: screening,z12.39 TECHNIQUE: Mammograms were interpreted according to the usual protocol including computer analysis w [employer] CAD system, tomosynthesis and C-view imaging. COMPARISON: 2014 FINDINGS: The breasts are composed of scattered fibroglandular densities, Breast Density category B. No suspicious masses or suspicious microcalcifications are seen. No skin thickening or abnormal axillary lymph nodes are seen. There has been no significant change from prior exams. IMPRESSION: BI-RADS Category 1, Negative mammogram Yearly screening mammography is recommended. Breast Density - Category B, scattered fibroglandular densities. A negative radiographic report should not delay biopsy if a dominant or clinically suspicious mass is present. Up to ten percent of cancers are not identified on mammography. A negative report may reinforce clinical impression. Adenosis and dense breasts may obscure an underlying neoplasm. False positive reports average 6 to 10%. Patient will receive a letter notifying them of these results.
[2022-03-09] MEDS: Inhaler, Assist Device 1 EACH MC (10:55)
[2022-03-09] MEDS: Albuterol HFA 18 GM 200 PUFF INH IH (10:55)
== END ==
PROVIDERS: PCP Family Medicine; Visit Provider Family Medicine
DX: R05.9 Cough, unspecified (principal); R06.00 Dyspnea, unspecified; Z12.31 Encounter for screening mammogram for malignant neoplasm of breast; F17.290 Nicotine dependence, other tobacco product, uncomplicated; Z91.09 Other allergy status, other than to drugs and biological substances
CPT/HCPCS: 77063; 77067; 94060; 94726; 94729

== ENCOUNTER → 2022-03-25 00:38 | Outpatient (CLI) | payer MEDICAID, SELFPAY ==
--- NOTE | 2022-03-25 07:45 | DI.CTLCSR_ITS ---
Exam(s) CT CHEST LUNG CANCER SCREEN EXAM: CT CHEST LUNG CANCER SCREEN CLINICAL HISTORY: Screening for lung cancer,f17.210,smoker TECHNIQUE: Imaging Protocol: Axial computed tomography images with coronal and sagittal reformatted images were created and reviewed COMPARISON: CT RENAL COLIC WO CONTRAST from 06/09/[address] CHEST PE CTA from 01/02/2021 FINDINGS: Tracheobronchial tree: No bronchiectasis or mucus plugging. Mediastinum and Hemalatha: No dominant adenopathy or fluid collection. Pulmonary parenchyma: No consolidation or dominant measurable mass. Mild emphysematous changes. Lung Nodules: 6 x 7 millimeter nodule lateral right lower lobe. 3 millimeter nodule anterior right u pper lobe. 5 x 3 millimeter pleural based nodule medial left lung base. Pleura: No effusion or pneumothorax. Heart: The heart is not dilated. [id number] coronary artery calcifications are seen. Aorta: Thoracic aorta non-dilated. Upper abdomen: Status post cholecystectomy. Unremarkable. Bones: Mild degenerative changes. Soft Tissues: Unremarkable. IMPRESSION: 6 x 7 millimeter nodule right lower lobe. Lung RADS Cat 3 - Probably Benign: Probably benign finding(s)-six-month follow-up suggested Lung-RADS 1.0 CATEGORIES: Category 0 - Prior chest CT exam(s) being located for comparison. Category 1 - Annual screening in 12 months. No nodules or definitely benign nodules. Category 2 - Annual screening in 12 months. Benign appearance. Nodules with low likelihood of becomin g active cancer. Category 3 - 6-month follow-up. Probably benign. Short-term follow-up suggested. Nodules with low lik elihood of becoming active cancer. Category 4A - 3-month follow-up and CT/PET if >8 mm in size. Suspicious finding. Findings which requi re additional testing. Category 4B - Findings which require additional testing and tissue sampling. Category 4X - Category 3 or 4 nodules with additional features or imaging findings that increases the suspicion of malignancy. Modifier S- Potentially clinically significant findings (non lung cancer) RADIATION DOSE DELIVERED: 99.8mGy.cm Total DLP 2.21mGy CTDIvol DATA REPOSITORY: All CT scans at this facility are submitted to the National Radiology Data Registry (NRDR) Dose Index Registry (DIR) with the [employer] ([employer]). RADIATION OPTIMIZATION: All CT scans at this facility use at least one of these dose optimization te chniques: automated exposure control; mA and/or kV adjustment per patient size (includes targeted exa ms where dose is matched to clinical indication); or iterative reconstruction.
== END ==
PROVIDERS: PCP Family Medicine; Visit Provider Family Medicine
DX: Z12.2 Encounter for screening for malignant neoplasm of respiratory organs (principal); F17.210 Nicotine dependence, cigarettes, uncomplicated; R91.8 Other nonspecific abnormal finding of lung field; J43.8 Other emphysema
CPT/HCPCS: 71271

== ENCOUNTER → 2022-07-01 20:09 | Outpatient (CLI) | payer MEDICAID, SELFPAY ==
--- NOTE | 2022-07-01 15:45 | DI.RAD_ITS ---
Exam(s) XR CHEST 2V PA LATERAL EXAM: XR CHEST 2V PA LATERAL CLINICAL HISTORY: COVID--U07.21...R/O PNEUMONIA TECHNIQUE: 2D digital imaging was performed. COMPARISON: CR XR PORTABLE CHEST AP from 01/02/2021 FINDINGS: The heart is not enlarged. The lungs are clear and well expanded. No pleural effusion seen. Mediastin al contours appear intact. IMPRESSION: Normal chest. RADIATION DOSE DELIVERED: Total DLP
== END ==
PROVIDERS: PCP Family Medicine; Visit Provider Nurse Practitioner Family
DX: U07.1 COVID-19 (principal)
CPT/HCPCS: 71046

== ENCOUNTER 2022-12-31 00:52 | Outpatient (CLI) | payer MEDICAID, SELFPAY ==
--- NOTE | 2022-12-31 07:15 | DI.CT_ITS ---
Exam(s) CT CHEST WO EXAM: CT CHEST WO CLINICAL HISTORY: Screening for lung cancer,former smoker, z87.891. TECHNIQUE: Multi planar reconstructions were performed. CONTRAST MATERIAL: None COMPARISON: CT CT CHEST LUNG CANCER SCREEN from 03/25/2022 FINDINGS: CHEST: LUNGS: The previously described 6 millimeter nodule in the lateral basal segment of the right lower l obe is again noted, unchanged in size.. Also unchanged is a 3-4 millimeter right upper lobe nodule. Another 2-3 millimeter nodule in the right upper lobe is also unchanged. No new right lung nodules evident. No pleural effusions. In the opposite-left lung the previously described pleural based small nodule in the posterior basal segment of the left lower lobe is unchanged. No new focal left lung findings. MEDIASTINUM: There is no obvious hilar nor mediastinal adenopathy. Visualized thyroid unremarkable.No obvious axillary adenopathy CARDIAC: Heart size is normal. There is no pericardial effusion.Caliber of the thoracic aorta is wit hin normal limits. VISUALIZED UPPER ABDOMEN:No obvious abnormalities. OSSEOUS: No significant osseous lesions.No fractures.. IMPRESSION: 1. Stable appearance of the previously described small bilateral lung nodules. The largest is again noted to be a 6 millimeter nodule in the lateral basal segment of the right lower lobe, unchanged fro m the CT scan of the March 25, 2022. 2. There are no pleural effusions nor intrathoracic adenopathy. 3. Appropriate follow-up here would be to keep this patient on a yearly LDCT chest scan routine RADIATION DOSE DELIVERED: 705.72mGy.cm Total DLP DATA REPOSITORY: All CT scans at this facility are submitted to the National Radiology Data Registry (NRDR) Dose Index Registry (DIR) with the [employer] (ACR). RADIATION OPTIMIZATION: All CT scans at this facility use at least one of these dose optimization te chniques: automated exposure control; mA and/or kV adjustment per patient size (includes targeted exa ms where dose is matched to clinical indication); or iterative reconstruction.
== END 2022-12-31 01:12 ==
LOC: DI 00:52
PROVIDERS: PCP Family Medicine; Visit Provider Family Medicine
DX: Z12.2 Encounter for screening for malignant neoplasm of respiratory organs (principal); Z87.891 Personal history of nicotine dependence; R91.1 Solitary pulmonary nodule
CPT/HCPCS: 71250

== ENCOUNTER 2023-02-02 09:50 | Day surgery (SDC) | payer MEDICAID, SELFPAY ==
[2023-02-02 10:12] VITALS: BP 131/87; PULSE 62; RESP 16; TEMP 36.5; O2SAT 97
[2023-02-02] MEDS: Lactated Ringers 1,000 ML 80 ML IV (10:43)
--- NOTE | 2023-02-02 12:11 | W.ANESPRE ---
General Info Date of Service Date Performed: 02/02/23 Height: 5 ft 10 in Weight: 120.7 kg Body Mass Index (BMI): 38.2 Surgical Procedure: Operation Date: 02/02/23 12:50 Proposed Procedure Side Surgeon oren Frye MD Meds Allergies and Home Medications Allergies Allergy/AdvReac Type Severity Reaction Status Date / Time sertraline HCl [From Zoloft] Allergy Severe Anaphylaxsi Unverified 02/01/23 13:02 s adhesive tape Allergy Skin Rash Unverified 02/01/23 13:02 morphine AdvReac Severe Nausea, Unverified 02/01/23 13:02 vomiting severe ibuprofen AdvReac Intermediate Nausea Unverified 02/02/23 10:29 Home Medication Medication Instructions Recorded acetaminophen 500 mg capsule 500 mg PO Q6H PRN pain #30 caps 01/01/21 naproxen 250 mg tablet 500 mg PO DAILY 01/02/21 albuterol sulfate 90 mcg/actuation 1 - 2 puff inhalation Q6H PRN ##1 02/12/21 aerosol inhaler (ProAir HFA) loratadine 10 mg tablet 10 mg PO DAILY 10/20/21 bupropion HCl 150 mg tablet,12 hr 150 mg PO DAILY #90 tab-caps 06/15/22 sustained-release (Wellbutrin SR) nystatin 100,000 unit/gram topical 1 applic topical BID #30 grams 06/16/22 ointment bisacodyl 5 mg tablet,delayed 5 mg PO ONCE #4 tabs 01/14/23 release (Dulcolax (bisacodyl)) polyethylene glycol 3350 17 17 g PO ONCE #238 grams 01/14/23 gram/dose oral powder Current Visit Medications: Current Medications Generic Name Dose Route Start Last Admin Trade Name Freq PRN Reason Stop Dose Admin Ringer's Solution 1,000 mls @ 80 mls/hr 02/02/23 06:00 02/02/23 10:43 IV 03/03/23 23:59 80 mls/hr INFUSION EDELMIRA Administration IV Miscellaneous Supplies 1 each 02/02/23 06:00 Iv Access IV 03/03/23 23:59 DIRECTED EDELMIRA Sodium Chloride 0 ml 02/02/23 06:00 Normal Saline Flush 10 Ml Syr IV 03/03/23 23:59 PRN PRN Sodium Chloride 0 ml 02/02/23 06:00 Normal Saline 10 Ml Vial IJ 03/03/23 23:59 DIRECTED PRN Sterile Water 0 ml 02/02/23 06:00 Water,Injection,Sterile 10 Ml Vial IJ 03/03/23 23:59 DIRECTED PRN [facility] Active Problems Active Problems: Problem Status Onset Code Bipolar depression F31.30 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 Full thickness rotator cuff tear (08/10/14) s/p repair 08/07/14; right History of cocaine abuse Hx of endometriosis Positive TB test (03/11/16) +TB test at [facility] occ med. Negative CXR Surgical History Surgical History H/O surgical procedure A. right and left distal clavicle resection b. right knee arthroscopy c. lap cholecystectomy d. tubal ligation e. tonsillectomy and adenoidectomy f. myringotomy and tubes g. LAVH h. colonoscopy i. gastroscopy j. rotator cuff repair 08/06/2014 History of bilateral ligation of fallopian tubes History of colonoscopy S/P rotator cuff repair (08/06/14) right; anterior acromioplasty Status post anterior cruciate ligament surgery Status post cholecystectomy Status post laparoscopic hysterectomy Tobacco Smoking/Tobacco Use Status: Current every day Tobacco Type: cigarettes Second hand exposure: Yes Counseling given: provider counseling Alcohol Alcohol Intake: current Alcohol intake frequency: a few times a month Alcohol type: beer, wine and hard liquor Substance Use Substance use: Daily Substance use type: marijuana Details: Hx Cocaine use-sober 10 years Marijuana-daily Vital Signs and Lab Results Vital Signs Most Recent Vital Signs in EMR: Most Recent Vital Signs Temp Pulse Resp BP Pulse Ox 36.5 C 62 16 131/87 97 02/02/23 10:12 02/02/23 10:12 02/02/23 10:12 02/02/23 10:12 02/02/23 10:12 Lab Results Blood Type / Crossmatch: No Data to Display Complete Blood Count: No Data to Display Complete Metabolic Panel: No Data to Display Liver Function Panel: No Data to Display Coagulation Panel: No Data to Display Cardiac Panel: No Data to Display Arterial Blood Gas: No Data to Display Venous Blood Gas: No Data to Display Pancreas Panel: No Data to Display Thyroid Panel: No Data to Display Infectious Disease: No Data to Display Blood Cultures: No Data to Display Toxicology Panel: No Data to Display Panel: No Data to Display Imaging and Studies Imaging and Studies Study information below may be from another EMR and interpreted by another provider. Please see original notes in EMR for more complete details. EKG Summary: Conclusion Sinus rhythm...normal P axis, V-rate 60- 99 Low voltage, precordial leads...precordial leads <1.0mV 01/02/21 Anesthesia Assessment and Plan Anesthesia History Personal History: No History of Anesthesia Complications Family History: No Family History of Anesthesia Complications Exercise Tolerance Exercise Tolerance: Metabolic Equivalents>4 Pertinent Negatives Pertinent Negatives: No Major Cardiovascular Symptoms or Complaints, No Major Pulmonary Symptoms or Complaints and No History of CVA/TIA Cardiac & Pulmonary Exam Cardiac Exam: Normal S1/S2 Heart Sounds Pulmonary Exam: Clear Bilateral Breath Sounds Implantable Cardiac Device Does patient have a Pacemaker or an ICD?: No Airway Exam Known Difficult Airway: No Mallampati Class: 3 Mouth Opening: Normal (> 3cm) Thyromental Distance: Greater than 3 cm Neck Range of Motion: Full ROM Neck Circumference: Normal Teeth Condition: Normal Dentition ASA Classification ASA Score: ASA 3 Emergency Case?: No NPO Status NPO Status: NPO Clears >2 hours, Solids >8 hours Status Status: History of Hysterectomy Anesthesia Plan Resuscitation Status: Full Code Anesthesia Technique: General Anesthesia Airway Planned: Natural Airway Monitors Used: Standard Monitors Preoperative Comments:: Rare inhaler use, mostly in summer months
[2023-02-02 12:16] VITALS: BMI 38.2
--- NOTE | 2023-02-02 12:19 | W.COLOREPORT ---
Date of service: 02/02/23 Time of Service: 12:19 Colonoscopy Report Procedure Description: Procedures performed: 1. Colonoscopy with snare polypectomy x1 2. Cold forceps biopsies 3. Endoscopic submucosal injection Preoperative diagnosis: Rectal bleeding Postoperative diagnosis: Rectal cancer, colorectal polyps Surgeon: Osiris Frye Anesthesia: Deonna Indication for procedure: Patient is a 53-year-old woman who thinks that she had adenomatous polyps removed on a previous colonoscopy many years ago but she is not sure. There is no record of that colonoscopy. She does not have a family history of colon cancer. She has been seeing bleeding on/off in her stools for a number of months now and requested a new colonoscopy. There is no pain or any other symptoms. Findings: At approximately 10 cm is a large rectal tumor. The hot snare was used to take large pieces of this. Right colon, transverse colon and left colon free of any polyps. There was one other polyp removed just distal to the tumor from the rectum with cold forceps technique. Submucosal injection of ink/tattoo was performed approximately 1 cm distal to the visible (inferior) margin of the tumor. No significant hemorrhoidal disease. Surveillance/follow-up recommendations: Staging is the next step. Complications: None Blood loss: Minimal Specimens:?? YES Quality of Prep:?? Good Procedure in detail: Written consent was obtained from the patient who was in agreement with the risks, benefits and indications of the procedure.? We went to the endoscopy suite and laid the patient in left lateral decubitus position.? Anesthesia was administered which was tolerated well.? A timeout was performed and when we are all in agreement we began the procedure. Digital rectal exam and visual examination was performed and within normal limits.? A well?lubricated colonoscope was advanced without difficulty all the way to the cecum identified by the ileocecal valve, and triangular folds and appendiceal orifice.? It was then slowly withdrawn. It was retroflexed in the rectum. The findings/interventions are noted above. The scope was then removed and my digital examination. I am barely able to palpate the distal margin of the tumor with my index finger by applying significant pressure. The patient tolerated the procedure well. She was then taken back to the PACU in hemodynamically stable condition.
[2023-02-02] MEDS: Endoscopic Tattoo 5 ML SYR IJ (12:49)
--- NOTE | 2023-02-02 12:49 | BOWEL_PTH ---
PATIENT: Sofi Do LOC: [facility] U#:[id number] AGE/SX: 53/F ROOM: RE02/02/[address]: Reggie Frye : 1970 BED: DIS: 02/02/2023 SPEC #: [id number] RECD: 02/02/23 13:13 STATUS: DONNIE RE #: [id number] KRISTA: 02/02/23 12:[address]: Reggie Frye DEPT: Surgical Specimen RECD BY: Sapphire Perez ENTERED: 02/02/23 13:15 SP TYPE: Bowel OTHR DR: Raina Toscano Tissues: 1 - BIOPSY BOWEL 2 - BIOPSY BOWEL Procedures: GROSS AND MICRO LEVEL 4 Comments: [id number]
[2023-02-02 13:08] VITALS: BP 102/69; PULSE 61; RESP 18; TEMP 36.4; O2SAT 99
--- NOTE | 2023-02-02 13:15 | W.ANESPOSTOP ---
Postoperative Evaluation Date, Time and Location Date Performed: 02/02/23 Time Performed: 13:15 Patient Location: Day Surgery Unit Vital Signs Most Recent Imported Vital Signs: Most Recent Vital Signs Temp Pulse Resp BP Pulse Ox 36.4 C L 61 18 102/69 99 02/02/23 13:08 02/02/23 13:08 02/02/23 13:08 02/02/23 13:08 02/02/23 13:08 Pain Score Most Recent Pain Score: Most Recent Pain Score Pain Level 0 02/02/23 13:08 Assessment Mental Status: Awake (Alert & Oriented to Patient Baseline) Airway and Respiratory Function: Patent airway with normal (patient baseline) respiratory exam Cardiovascular Function: Hemodynamically Stable Hydration Status: Adequately Hydrated Nausea & Vomiting: No Nausea or Vomiting Pain: Pt. Denies Any Pain Peripheral Nerve Block: Patient did not receive a nerve block Postoperative Comments:: Patiemt will follow up with PCP regarding bradycardia
[2023-02-02 13:51] VITALS: BP 146/96; PULSE 61; RESP 18; TEMP 36.4; O2SAT 100
== END 2023-02-02 14:40 | disposition home or self-care (01) ==
PROVIDERS: PCP Family Medicine; Visit Provider Student in an Organized Health Care Education/Training Program
PROC: 0DJD8ZZ Inspection of Lower Intestinal Tract, Via Natural or Artificial Opening Endoscopic (ICD-10-PCS; CPT 45378; principal; 2023-02-02 12:45)
DX: C20 Malignant neoplasm of rectum (principal); K62.5 Hemorrhage of anus and rectum; K63.5 Polyp of colon
CPT/HCPCS: 45385; 45381; 45380; 88305

== ENCOUNTER 2023-02-05 00:57 | Outpatient (CLI) | payer MEDICAID, SELFPAY ==
--- NOTE | 2023-02-05 07:45 | DI.CT_ITS ---
Exam(s) CT CHEST/ABD/PEL W EXAM: CT CHEST/ABD/PEL W CLINICAL HISTORY: rectal cancer staging,NO SYMP,C20 TECHNIQUE: Imaging Protocol: Axial computed tomography images with coronal and sagittal reformatted images were created and reviewed CONTRAST MATERIAL: Intravenous: Omnipaque 350 contrast volume:100 mL Oral: Yes COMPARISON: CT RENAL COLIC WO CONTRAST from 06/09/[address] CHEST PE CTA from 01/02/[address] CHEST LUNG CANCER SCREEN from 03/25/2022 FINDINGS: CHEST: Tracheobronchial tree: Patent where visualized. Pulmonary parenchyma: The nodule in the right lower lobe is unchanged. The 3 mm nodule in the left u pper lobe is unchanged. There are no new pulmonary nodules. No focal consolidating infiltrates are present. There are blebs seen in the upper lobes bilaterally. No architectural distortion. Visualized thyroid gland: Unremarkable. Mediastinum and Hemalatha: No dominant adenopathy or fluid collection. The esophagus is unremarkable. Pleura: No effusion or pneumothorax. Heart: The heart is not dilated. Coronary artery calcification is present. No pericardial effusion. Pulmonary arteries: No pulmonary emboli are identified. Aorta: Thoracic aorta non-dilated. Lymph nodes: Within normal limits. Soft tissues: Unremarkable. Bones:Within normal limits for the patient's age. ABDOMEN: Liver: There is fatty infiltration of the liver. No measurable mass. Portal, Superior Mesenteric, and Splenic Veins: Unremarkable. Gallbladder and Biliary Tract: Status post cholecystectomy. No biliary ductal dilatation. Pancreas: Normal density, no abnormal calcifications or inflammatory process. Spleen: Normal. Adrenals: No masses seen. Kidneys: Normal size, contour and axis. No radiodense stones or obstructive uropathy. There are few t iny hypodensities in the kidneys. They are too small for further characterization, but likely reflec t small cysts. No follow-up is recommended. Abdominal Aorta: Abdominal portion non-dilated. Atherosclerosis. Bowel: No evidence of bowel obstruction. There does appear to be some bowel wall thickening in the m id rectum. (Series 14 images 733 through 809). Appendix is unremarkable. Peritoneal Cavity: No ascites, collection or mesenteric inflammatory response. No free air. Lymph Nodes: Within normal limits. Bones: Within normal limits for the patient's age. No lytic or sclerotic lesions. Soft Tissues: There is a fat containing umbilical hernia. PELVIS: Bladder: Symmetric distention, no gross wall thickening. Reproductive Organs: Status post hysterectomy. Lymph Nodes: Within normal limits. Bones: Within normal limits. IMPRESSION: 1. Stable pulmonary nodules. 2. Rectal wall thickening (series 14, images [phone]). This may reflect the patient's diagnosis of r ectal carcinoma. 3. No evidence of abdominal or pelvic metastatic disease. RADIATION DOSE DELIVERED: 2,813.28mGy.cm Total DLP DATA REPOSITORY: All CT scans at this facility are submitted to the National Radiology Data Registry (NRDR) Dose Index Registry (DIR) with the [employer] (ACR). RADIATION OPTIMIZATION: All CT scans at this facility use at least one of these dose optimization te chniques: automated exposure control; mA and/or kV adjustment per patient size (includes targeted exa ms where dose is matched to clinical indication); or iterative reconstruction.
[2023-02-05] MEDS: Barium Sulfate 2% W/V-Berry Smoothie 450 ML BTL 900 ML PO (13:25)
[2023-02-05 13:27] LABS: Abs Immature Grans 0.01 10^3/uL (0.0-0.06); Absolute Basophil Count 0.02 10^3/uL (0.0-0.2); Absolute Eosinophil Count 0.19 10^3/uL (0.0-0.7); Absolute Monocyte Count 0.46 10^3/uL (0.1-0.8); Absolute Neutrophil Count 3.72 10^3/uL (1.2-6.7); Basophils % 0.3; HCT 41.5 % (36.0-46.0); HGB 13.8 g/dL (11.2-15.7); Immature Grans % 0.2; Lymphocytes % 31.3; MCH 30.5 pg (27.0-33.0); MCHC 33.3 % (32.0-36.0); MCV 92 fL (80-95); MPV 9.6 fL (8.0-11.0); Monocytes % 7.2; Platelet Count 285 10^3/uL (130-400); RBC 4.53 10^6/uL (3.93-5.22); RDW 14.1 % (11.7-14.6); RDW-SD 47.9 fL
[2023-02-05 13:43] LABS: ALT 30 U/L (14-59); AST 18 U/L (15-37); Albumin 3.6 g/dL (3.4-5.0); Alkaline Phosphatase 67 U/L (46-116); Anion Gap 5.4 mmol/L (3-11); BUN 14 mg/dL (7-18); Bilirubin, Direct 0.1 mg/dL (0.0-0.2); Bilirubin, Total 0.2 mg/dL (0.2-1.0); CO2 28.6 mmol/L (21.0-32.0); CREATININE 1.1 mg/dL (0.55-1.02); Calcium 8.9 mg/dL (8.5-10.1); Chloride 105 mmol/L (98-107); Estimated GFR 60.08 (mL/min/1.73m2); Glucose 107 mg/dL (74-106); Potassium 3.9 mmol/L (3.5-5.1); Sodium 139 mmol/L (136-145); Total Protein 7.2 g/dL (6.4-8.2)
[2023-02-05] MEDS: Omnipaque 350 MG/ML 100 ML BTL IJ (15:07)
[2023-02-05] MEDS: Normal Saline - Diluent 50 ML VIAL IJ (15:07)
[2023-02-05] MEDS: Normal Saline Flush 10 ML SYR IVP (15:09)
== END 2023-02-05 01:17 ==
LOC: DI 00:57
PROVIDERS: PCP Family Medicine; Visit Provider Student in an Organized Health Care Education/Training Program
DX: C20 Malignant neoplasm of rectum (principal); R91.8 Other nonspecific abnormal finding of lung field; K76.0 Fatty (change of) liver, not elsewhere classified; Z90.49 Acquired absence of other specified parts of digestive tract; Z90.710 Acquired absence of both cervix and uterus; Z12.89 Encounter for screening for malignant neoplasm of other sites
CPT/HCPCS: 74177; 80048; 80076; 71260; 82378; 85025; J3490

== ENCOUNTER 2023-02-05 08:21 | Outpatient (CLI) | payer MEDICAID, SELFPAY ==
--- NOTE | 2023-02-05 08:15 | RT.EKG_ITS ---
APPROVED REPORT Exam: Resting ECG Reason for Exam: bradycardia Patient Location: O HR:46 bpm ECG Measurements Heart Rate 46 AXIS AK 185 P 52 QRSd 99 QRS 11 QT 499 T 60 QTc 437 Conclusion Sinus bradycardia...rate< 50 Otherwise normal ECG
== END 2023-02-05 08:22 | disposition home or self-care (01) ==
LOC: DI.CM 08:22
PROVIDERS: PCP Family Medicine; Visit Provider Family Medicine
DX: R00.1 Bradycardia, unspecified (principal)
CPT/HCPCS: 93010

== ENCOUNTER 2023-02-09 01:00 | Outpatient (CLI) | payer MEDICAID, SELFPAY ==
--- NOTE | 2023-02-09 05:45 | ETT_ITS ---
APPROVED REPORT Exam: Exercise Treadmill Patient Location: Out-Patient Room/Bed: Stress Nurse: Polly Herbert RN Ordering Provider:SASHA CARCAMO MD, Contact Number: [phone] BMI: 39.31 Baseline Rhythm: Sinus Bradycardia Indications: Sinus bradycardia Medical History Medical History: Bipolar depression, asthma, GERD, morbid obesity, celiac disease, hx cocaine abuse Cardiac Medications: albuterol sulfate, bupropion Allergies: Sertraline, morphine, ibuprofen, adhesive tape Cardiac Risk Factors: Smoker, asthma, family hx, obesity Previous Cardiac Procedures: None Pretest Chest Pain Characteristics: None Exercise History: Sedentary Physical Disabilities: None Lung Sounds: Clear to auscultation Heart Sounds: Bradycardia Stress Test Details Test: Exercise stress testing was performed using a Wilver protocol. Rest Stress HR Resting HR Supine: 53 bpm Max Heart Rate (APMHR): 167 bpm Resting HR Standin bpm Target HR (85% APMHR): 142 bpm Max HR Achieved: 133 bpm % of APMHR: 80 Recovery HR: 81 bpm HR response to stress: Normal HR response to stress BP Resting BP Supine: 122/74 mmHg Resting BP Standin/76 mmHg Max BP: 150/82 mmHg Recovery BP: 140/78 mmHg ECG Resting ECG: Sinus Bradycardia Ectopy: None Stress ECG: Sinus Rhythm ST Change: No significant ST segment changes noted, Nondiagnostic low heart rate Arrhythmia: None Recovery ECG: Sinus Rhythm Recovery ST Change: No significant ST segment changes noted, Nondiagnostic low heart rate Recovery Arrhythmia: None Clinical Reason for Termination: Fatigue, Dizziness Stress Symptoms: General Fatigue, Dizziness Exercise duration: 6 min20 sec Highest Stage Reached: Stage 3: 3.4 mph at 14% grade. Exercise capacity: 7.57 METs Angina Score: None Samson Treadmill Score: 5.7 Rate Pressure Product: [id number] Stress ECG Conclusion 1. The resting electrocardiogram showed borderline first-degree AV block, otherwise normal 2. Patient exercised on the Wilver protocol and completed a workload of 7.57 METS 3. Normal heart rate and blood pressure response to exercise. The patient achieved 80% of predicted heart rate for age 4. At that level of exercise and heart rate, there was no electrocardiographic evidence of myocardial ischemia though the test overall would be considered nondiagnostic as the patient did not achieve 85 % of predicted heart rate for age 5. There were no dysrhythmias Samson Treadmill Score is 5.7 which is Low risk. Stress Test Summary STAGE Time (mins) Speed (mph) Grade (%) HR BP SpO2 SYMPTOMS METS Supine 53 122/74 Standing 71 126/76 1 3 1.7 10 107 140/78 96 4.5 2 6 2.5 12 128 150/82 95 Dizziness 7 3 9 3.4 14 130 95 Dizziness 10 1 min recovery 115 148/78 95 Dizziness resolving 3 min recovery 78 150/72 96 Dizziness resolving 6 min recovery 81 146/78 Dizziness resolved
== END 2023-02-09 01:20 ==
LOC: DI 01:00
PROVIDERS: PCP Family Medicine; Visit Provider Family Medicine
DX: R00.1 Bradycardia, unspecified (principal)
CPT/HCPCS: 93017

== ENCOUNTER 2023-05-18 01:43 | Outpatient (RCR) | payer MEDICAID, SELFPAY ==
[2023-04-23] MEDS: Normal Saline Flush 10 ML SYR IVP (09:14)
[2023-04-23 09:28] LABS: Abs Immature Grans 0.01 10^3/uL (0.0-0.06); Absolute Basophil Count 0.02 10^3/uL (0.0-0.2); Absolute Eosinophil Count 0.22 10^3/uL (0.0-0.7); Absolute Lymphocyte Count 0.65 10^3/uL (1.2-3.4); Absolute Monocyte Count 0.37 10^3/uL (0.1-0.8); Absolute Neutrophil Count 3.52 10^3/uL (1.2-6.7); Basophils % 0.4; Eosinophils % 4.6; HCT 38.1 % (36.0-46.0); HGB 12.7 g/dL (11.2-15.7); Immature Grans % 0.2; Lymphocytes % 13.6; MCH 31.1 pg (27.0-33.0); MCHC 33.3 % (32.0-36.0); MCV 93 fL (80-95); MPV 9.1 fL (8.0-11.0); Monocytes % 7.7; Neutrophils % 73.5; Platelet Count 235 10^3/uL (130-400); RBC 4.08 10^6/uL (3.93-5.22); RDW 14.2 % (11.7-14.6); RDW-SD 49.1 fL; WBC 4.79 10^3/uL (4.4-10.8)
[2023-04-23 09:44] LABS: ALT 21 U/L (14-59); AST 13 U/L (15-37); Albumin 3.1 g/dL (3.4-5.0); Alkaline Phosphatase 58 U/L (46-116); Anion Gap 5.4 mmol/L (3-11); BUN 16 mg/dL (7-18); Bilirubin, Total 0.2 mg/dL (0.2-1.0); CO2 27.6 mmol/L (21.0-32.0); Calcium 8.2 mg/dL (8.5-10.1); Chloride 104 mmol/L (98-107); Estimated GFR 67.36 (mL/min/1.73m2); Glucose 176 mg/dL (74-106); Potassium 3.9 mmol/L (3.5-5.1); Sodium 137 mmol/L (136-145); Total Protein 6.7 g/dL (6.4-8.2)
[2023-04-23 19:40] LABS: CEA 0.5 ng/mL (See Note)
[2023-04-25 11:31] VITALS: BP 112/71; PULSE 50; RESP 18; TEMP 36.6; O2SAT 99
[2023-04-25] MEDS: Normal Saline Flush 10 ML SYR IVP (14:32)
[2023-04-25] MEDS: Heparin 500 UNITS/5 ML SYRINGE IV (14:33)
[2023-05-07] MEDS: Normal Saline Flush 10 ML SYR IVP (10:46)
[2023-05-07 10:52] LABS: Abs Immature Grans 0.01 10^3/uL (0.0-0.06); Absolute Basophil Count 0.02 10^3/uL (0.0-0.2); Absolute Eosinophil Count 0.19 10^3/uL (0.0-0.7); Absolute Lymphocyte Count 0.94 10^3/uL (1.2-3.4); Absolute Neutrophil Count 0.97 10^3/uL (1.2-6.7); Basophils % 0.8; Eosinophils % 7.5; HGB 11.8 g/dL (11.2-15.7); Immature Grans % 0.4; Lymphocytes % 37.2; MCH 31.5 pg (27.0-33.0); MCHC 33.7 % (32.0-36.0); MCV 93 fL (80-95); MPV 8.9 fL (8.0-11.0); Monocytes % 15.8; Neutrophils % 38.3; Platelet Count 215 10^3/uL (130-400); RBC 3.75 10^6/uL (3.93-5.22); RDW 14.6 % (11.7-14.6); RDW-SD 48.7 fL; WBC 2.53 10^3/uL (4.4-10.8)
[2023-05-07 11:05] LABS: Diff Comment Diff Reviewed; RBC Morphology Normal
[2023-05-07 11:07] LABS: ALT 27 U/L (14-59); AST 18 U/L (15-37); Albumin 3.2 g/dL (3.4-5.0); Alkaline Phosphatase 60 U/L (46-116); Anion Gap 7.6 mmol/L (3-11); BUN 17 mg/dL (7-18); Bilirubin, Total 0.3 mg/dL (0.2-1.0); CO2 27.4 mmol/L (21.0-32.0); CREATININE 0.8 mg/dL (0.55-1.02); Calcium 8.5 mg/dL (8.5-10.1); Chloride 105 mmol/L (98-107); Estimated GFR 88.05 (mL/min/1.73m2); Glucose 95 mg/dL (74-106); Potassium 4.2 mmol/L (3.5-5.1); Sodium 140 mmol/L (136-145); Total Protein 6.4 g/dL (6.4-8.2)
[2023-05-07 21:11] LABS: CEA 1.3 ng/mL (See Note)
[2023-05-18] MEDS: Normal Saline Flush 10 ML SYR IVP (08:13)
[2023-05-18 08:21] LABS: Abs Immature Grans 0.02 10^3/uL (0.0-0.06); Absolute Basophil Count 0.06 10^3/uL (0.0-0.2); Absolute Eosinophil Count 0.15 10^3/uL (0.0-0.7); Absolute Lymphocyte Count 1.35 10^3/uL (1.2-3.4); Absolute Monocyte Count 0.56 10^3/uL (0.1-0.8); Absolute Neutrophil Count 2.44 10^3/uL (1.2-6.7); Basophils % 1.3; Eosinophils % 3.3; HCT 39.3 % (36.0-46.0); HGB 12.8 g/dL (11.2-15.7); Immature Grans % 0.4; Lymphocytes % 29.5; MCH 30.7 pg (27.0-33.0); MCHC 32.6 % (32.0-36.0); MCV 94 fL (80-95); MPV 9.2 fL (8.0-11.0); Monocytes % 12.2; Neutrophils % 53.3; Platelet Count 233 10^3/uL (130-400); RBC 4.17 10^6/uL (3.93-5.22); RDW 15.9 % (11.7-14.6); RDW-SD 54.7 fL; WBC 4.58 10^3/uL (4.4-10.8)
[2023-05-18 08:38] LABS: ALT 26 U/L (14-59); AST 20 U/L (15-37); Albumin 3.7 g/dL (3.4-5.0); Alkaline Phosphatase 61 U/L (46-116); Anion Gap 8.7 mmol/L (3-11); BUN 17 mg/dL (7-18); Bilirubin, Total 0.3 mg/dL (0.2-1.0); CO2 28.3 mmol/L (21.0-32.0); CREATININE 1.1 mg/dL (0.55-1.02); Calcium 8.8 mg/dL (8.5-10.1); Chloride 105 mmol/L (98-107); Estimated GFR 60.08 (mL/min/1.73m2); Glucose 126 mg/dL (74-106); Potassium 4.3 mmol/L (3.5-5.1); Sodium 142 mmol/L (136-145)
[2023-05-18 19:14] LABS: CEA 1.5 ng/mL (See Note)
== END 2023-05-21 23:59 | disposition home or self-care (01) ==
LOC: INF 01:43
PROVIDERS: PCP Family Medicine; Visit Provider Internal Medicine Hematology & Oncology
DX: Z45.2 Encounter for adjustment and management of vascular access device (principal); C20 Malignant neoplasm of rectum
CPT/HCPCS: 36591; 80053; 96523; 82378; 85025

== ENCOUNTER 2023-06-15 03:25 | Outpatient (RCR) | payer MEDICAID, SELFPAY ==
[2023-05-22 00:11] VITALS: BP 112/71; PULSE 50; RESP 18; TEMP 36.6
[2023-06-02] MEDS: Normal Saline Flush 10 ML SYR IVP (08:24)
[2023-06-02 08:27] LABS: Abs Immature Grans 0.35 10^3/uL (0.0-0.06); Absolute Basophil Count 0.04 10^3/uL (0.0-0.2); Absolute Eosinophil Count 0.19 10^3/uL (0.0-0.7); Absolute Lymphocyte Count 1.07 10^3/uL (1.2-3.4); Absolute Monocyte Count 0.36 10^3/uL (0.1-0.8); Absolute Neutrophil Count 2.96 10^3/uL (1.2-6.7); Basophils % 0.8; Eosinophils % 3.8; HCT 35.7 % (36.0-46.0); HGB 12.1 g/dL (11.2-15.7); Lymphocytes % 21.5; MCH 32.1 pg (27.0-33.0); MCHC 33.9 % (32.0-36.0); MCV 95 fL (80-95); MPV 9.4 fL (8.0-11.0); Monocytes % 7.2; Neutrophils % 59.7; Platelet Count 178 10^3/uL (130-400); RBC 3.77 10^6/uL (3.93-5.22); RDW-SD 57.9 fL; WBC 4.97 10^3/uL (4.4-10.8)
[2023-06-02 08:57] LABS: ALT 28 U/L (14-59); AST 24 U/L (15-37); Albumin 3.2 g/dL (3.4-5.0); Alkaline Phosphatase 75 U/L (46-116); Anion Gap 5.6 mmol/L (3-11); BUN 14 mg/dL (7-18); Bilirubin, Total 0.3 mg/dL (0.2-1.0); CO2 29.4 mmol/L (21.0-32.0); CREATININE 0.9 mg/dL (0.55-1.02); Calcium 8.4 mg/dL (8.5-10.1); Chloride 107 mmol/L (98-107); Estimated GFR 76.44 (mL/min/1.73m2); Glucose 166 mg/dL (74-106); Potassium 4.1 mmol/L (3.5-5.1); Sodium 142 mmol/L (136-145); Total Protein 6.1 g/dL (6.4-8.2)
[2023-06-02 09:42] LABS: Diff Comment Agrees w/ Instrument; RBC Morphology Normal
[2023-06-02 20:05] LABS: CEA 1.6 ng/mL (See Note)
[2023-06-15] MEDS: Normal Saline Flush 10 ML SYR IVP (08:24)
[2023-06-15 08:39] LABS: Absolute Basophil Count 0.08 10^3/uL (0.0-0.2); Absolute Eosinophil Count 0.22 10^3/uL (0.0-0.7); Absolute Monocyte Count 0.65 10^3/uL (0.1-0.8); Absolute Neutrophil Count 4.44 10^3/uL (1.2-6.7); Basophils % 1.1; Eosinophils % 3.1; HCT 37.5 % (36.0-46.0); HGB 12.5 g/dL (11.2-15.7); Immature Grans % 5.6; Lymphocytes % 19.5; MCH 31.9 pg (27.0-33.0); MCHC 33.3 % (32.0-36.0); MCV 96 fL (80-95); MPV 9.7 fL (8.0-11.0); Neutrophils % 61.7; Platelet Count 178 10^3/uL (130-400); RBC 3.92 10^6/uL (3.93-5.22); RDW 18.4 % (11.7-14.6); RDW-SD 62.5 fL; WBC 7.19 10^3/uL (4.4-10.8)
[2023-06-15 09:02] LABS: ALT 22 U/L (14-59); AST 18 U/L (15-37); Albumin 3.5 g/dL (3.4-5.0); Alkaline Phosphatase 107 U/L (46-116); Anion Gap 8.2 mmol/L (3-11); BUN 15 mg/dL (7-18); Bilirubin, Total 0.4 mg/dL (0.2-1.0); CO2 27.8 mmol/L (21.0-32.0); CREATININE 1.1 mg/dL (0.55-1.02); Calcium 8.9 mg/dL (8.5-10.1); Chloride 105 mmol/L (98-107); Estimated GFR 60.08 (mL/min/1.73m2); Glucose 129 mg/dL (74-106); Potassium 3.8 mmol/L (3.5-5.1); Sodium 141 mmol/L (136-145); Total Protein 6.6 g/dL (6.4-8.2)
[2023-06-15 09:13] LABS: Diff Comment Diff Reviewed; RBC Morphology Normal
[2023-06-15 20:17] LABS: CEA 1.7 ng/mL (See Note)
== END 2023-06-21 23:59 | disposition home or self-care (01) ==
LOC: INF 03:25
PROVIDERS: PCP Family Medicine; Visit Provider Internal Medicine Hematology & Oncology
DX: C20 Malignant neoplasm of rectum (principal); Z45.2 Encounter for adjustment and management of vascular access device
CPT/HCPCS: 36591; 80053; 82378; 85025

== ENCOUNTER → 2023-07-02 00:24 | Outpatient (CLI) | payer MEDICAID, SELFPAY ==
[2023-07-02] MEDS: Barium Sulfate 2% W/V-Berry Smoothie 450 ML BTL 900 ML PO (09:13)
--- NOTE | 2023-07-02 09:15 | DI.CT_ITS ---
Exam(s) CT CHEST/ABD/PEL W EXAM: CT CHEST/ABD/PEL W CLINICAL HISTORY: RECTAL CA, C20, S/P RADIATION, 4 CYCLES CHMEO. TECHNIQUE: Imaging Protocol: Axial computed tomography images with coronal and sagittal reformatted images were created and reviewed CONTRAST MATERIAL: Intravenous: Omnipaque 350 Contrast volume:100 ml Oral: yes / no COMPARISON: CT CT CHEST/ABD/PEL W from 02/05/2023 FINDINGS: CHEST: Tracheobronchial tree: Patent where visualized. Pulmonary parenchyma: No consolidation or dominant measurable mass. Bilateral upper lobe blebs. Sta ble tiny right lower and left upper nodules. Pleura: No effusion or pneumothorax. Lymph nodes: Within normal limits. Aorta: Thoracic portion non-dilated. Heart: Normal size. Coronary artery calcifications noted. Bones: Unremarkable for age. No lytic or blastic lesions.No compression fractures. Soft tissues: Port over right upper chest. ABDOMEN: Liver: Marked parotic steatosis.. No measurable mass. Gallbladder and biliary tract: Status post cholecystectomy. No radiodense calculus or dilation. Pancreas: Normal density, no abnormal calcifications or inflammatory process. Spleen: Normal. Kidneys: Normal size, contour and axis. No radiodense stones or obstructive uropathy. No suspicious m asses seen. Adrenal glands: No masses seen. Aorta: Abdominal portion non-dilated. Lymph nodes: Within normal limits. Soft tissues: Small fatty containing umbilical hernia. PELVIS: Bladder: Nearly empty. No gross wall thickening. Bowel: Mild interval decrease in prominence of previously noted rectal wall thickening/mass.. No obs truction or bowel wall thickening. Peritoneal cavity: No ascites, collection or mesenteric inflammatory response. Bones: Degenerative changes lower lumbar spine. Reproductive organs: Status post hysterectomy IMPRESSION: No evidence of metastatic disease in the chest. No evidence of metastatic disease in the abdomen or pelvis. Decreased prominence of previously noted rectal wall thickening/mass. RADIATION DOSE DELIVERED: 2,506.6mGy.cm Total DLP DATA REPOSITORY: All CT scans at this facility are submitted to the National Radiology Data Registry (NRDR) Dose Index Registry (DIR) with the [employer] (ACR). RADIATION OPTIMIZATION: All CT scans at this facility use at least one of these dose optimization te chniques: automated exposure control; mA and/or kV adjustment per patient size (includes targeted exa ms where dose is matched to clinical indication); or iterative reconstruction.
[2023-07-02] MEDS: Omnipaque 350 MG/ML 500 ML BTL-Imaging package 100 ML IJ (11:40)
[2023-07-02] MEDS: Normal Saline - Diluent 50 ML VIAL IJ (11:41)
== END ==
PROVIDERS: PCP Family Medicine; Visit Provider Nurse Practitioner Family
DX: C20 Malignant neoplasm of rectum (principal)
CPT/HCPCS: 74177; 71260

== ENCOUNTER 2023-07-13 04:18 | Outpatient (RCR) | payer MEDICAID, SELFPAY ==
[2023-06-22 00:13] VITALS: BP 112/71; PULSE 50; RESP 18; TEMP 36.6
[2023-06-29] MEDS: Normal Saline Flush 10 ML SYR IVP (07:45)
[2023-06-29 08:34] LABS: Abs Immature Grans 0.12 10^3/uL (0.0-0.06); Absolute Basophil Count 0.03 10^3/uL (0.0-0.2); Absolute Eosinophil Count 0.09 10^3/uL (0.0-0.7); Absolute Lymphocyte Count 1.53 10^3/uL (1.2-3.4); Absolute Monocyte Count 0.47 10^3/uL (0.1-0.8); Absolute Neutrophil Count 2.69 10^3/uL (1.2-6.7); Basophils % 0.6; Eosinophils % 1.8; HCT 37.6 % (36.0-46.0); HGB 12.6 g/dL (11.2-15.7); Immature Grans % 2.4; MCH 32.7 pg (27.0-33.0); MCHC 33.5 % (32.0-36.0); MCV 98 fL (80-95); MPV 10.1 fL (8.0-11.0); Monocytes % 9.5; Neutrophils % 54.7; Platelet Count 147 10^3/uL (130-400); RBC 3.85 10^6/uL (3.93-5.22); RDW 18.9 % (11.7-14.6); RDW-SD 66.4 fL; WBC 4.93 10^3/uL (4.4-10.8)
[2023-06-29 08:47] LABS: ALT 24 U/L (14-59); AST 19 U/L (15-37); Albumin 3.7 g/dL (3.4-5.0); Alkaline Phosphatase 111 U/L (46-116); Anion Gap 8.5 mmol/L (3-11); BUN 12 mg/dL (7-18); Bilirubin, Total 0.3 mg/dL (0.2-1.0); CO2 28.5 mmol/L (21.0-32.0); Calcium 9.1 mg/dL (8.5-10.1); Chloride 104 mmol/L (98-107); Estimated GFR 67.36 (mL/min/1.73m2); Glucose 119 mg/dL (74-106); Potassium 3.8 mmol/L (3.5-5.1); Sodium 141 mmol/L (136-145); Total Protein 6.7 g/dL (6.4-8.2)
[2023-06-29 18:22] LABS: CEA 1.8 ng/mL (See Note)
[2023-07-02] MEDS: Normal Saline Flush 10 ML SYR IVP ×2 (09:17→11:43)
[2023-07-02] MEDS: Heparin 500 UNITS/5 ML SYRINGE IV ×2 (09:18→11:42)
[2023-07-13] MEDS: Normal Saline Flush 10 ML SYR IVP (08:02)
[2023-07-13 08:48] LABS: Absolute Basophil Count 0.04 10^3/uL (0.0-0.2); Absolute Eosinophil Count 0.15 10^3/uL (0.0-0.7); Absolute Lymphocyte Count 1.55 10^3/uL (1.2-3.4); Absolute Monocyte Count 0.47 10^3/uL (0.1-0.8); Basophils % 0.7; Eosinophils % 2.5; HCT 35.2 % (36.0-46.0); HGB 11.7 g/dL (11.2-15.7); Immature Grans % 3.4; Lymphocytes % 26.2; MCH 33.5 pg (27.0-33.0); MCHC 33.2 % (32.0-36.0); MCV 101 fL (80-95); MPV 10.4 fL (8.0-11.0); Neutrophils % 59.2; Platelet Count 130 10^3/uL (130-400); RBC 3.49 10^6/uL (3.93-5.22); RDW 20.1 % (11.7-14.6); RDW-SD 73.3 fL; WBC 5.91 10^3/uL (4.4-10.8)
[2023-07-13 09:02] LABS: Anisocytosis 2+; Diff Comment RBC Morph Reviewed
[2023-07-13 09:06] LABS: ALT 36 U/L (14-59); AST 28 U/L (15-37); Albumin 3.5 g/dL (3.4-5.0); Alkaline Phosphatase 118 U/L (46-116); Anion Gap 7.5 mmol/L (3-11); BUN 15 mg/dL (7-18); Bilirubin, Total 0.3 mg/dL (0.2-1.0); CO2 27.5 mmol/L (21.0-32.0); Calcium 8.7 mg/dL (8.5-10.1); Chloride 106 mmol/L (98-107); Estimated GFR 67.36 (mL/min/1.73m2); Glucose 129 mg/dL (74-106); Potassium 3.4 mmol/L (3.5-5.1); Sodium 141 mmol/L (136-145); Total Protein 6.4 g/dL (6.4-8.2)
[2023-07-13 19:50] LABS: CEA 2.2 ng/mL (See Note)
== END 2023-07-22 23:59 | disposition home or self-care (01) ==
LOC: INF 04:18
PROVIDERS: PCP Family Medicine; Visit Provider Internal Medicine Hematology & Oncology
DX: C20 Malignant neoplasm of rectum (principal); Z45.2 Encounter for adjustment and management of vascular access device
CPT/HCPCS: 36591; 80053; 96523; 82378; 85025

== ENCOUNTER 2023-08-11 02:55 | Outpatient (RCR) | payer MEDICAID, SELFPAY ==
[2023-07-23 00:19] VITALS: BP 112/71; PULSE 50; RESP 18; TEMP 36.6
[2023-07-28] MEDS: Normal Saline Flush 10 ML SYR IVP (10:51)
[2023-07-28 11:27] LABS: Abs Immature Grans 0.29 10^3/uL (0.0-0.06); Absolute Basophil Count 0.05 10^3/uL (0.0-0.2); Absolute Eosinophil Count 0.12 10^3/uL (0.0-0.7); Absolute Lymphocyte Count 1.19 10^3/uL (1.2-3.4); Absolute Monocyte Count 0.46 10^3/uL (0.1-0.8); Absolute Neutrophil Count 4.81 10^3/uL (1.2-6.7); Basophils % 0.7; Eosinophils % 1.7; HCT 36.4 % (36.0-46.0); HGB 12.2 g/dL (11.2-15.7); Immature Grans % 4.2; Lymphocytes % 17.2; MCH 35.1 pg (27.0-33.0); MCHC 33.5 % (32.0-36.0); MCV 105 fL (80-95); Monocytes % 6.6; Neutrophils % 69.6; Platelet Count 177 10^3/uL (130-400); RBC 3.48 10^6/uL (3.93-5.22); RDW 20.1 % (11.7-14.6); RDW-SD 76.6 fL; WBC 6.92 10^3/uL (4.4-10.8)
[2023-07-28 11:45] LABS: ALT 34.8 U/L (14-59); AST 31 U/L (15-37); Albumin 3.6 g/dL (3.4-5.0); Alkaline Phosphatase 118 U/L (46-116); Anion Gap 4.7 mmol/L (3-11); BUN 16 mg/dL (7-18); Bilirubin, Total 0.4 mg/dL (0.2-1.0); CO2 29.3 mmol/L (21.0-32.0); Calcium 8.8 mg/dL (8.5-10.1); Chloride 104 mmol/L (98-107); Estimated GFR 67.36 (mL/min/1.73m2); Glucose 145 mg/dL (74-106); Potassium 3.8 mmol/L (3.5-5.1); Sodium 138 mmol/L (136-145); Total Protein 6.8 g/dL (6.4-8.2)
[2023-07-28 12:17] LABS: Anisocytosis 2+; Diff Comment RBC Morph Reviewed; Polychromasia Present
[2023-07-28 18:20] LABS: CEA 2.5 ng/mL (See Note)
[2023-08-11] MEDS: Normal Saline Flush 10 ML SYR IVP (12:04)
[2023-08-11 12:17] LABS: Abs Immature Grans 0.13 10^3/uL (0.0-0.06); Absolute Basophil Count 0.03 10^3/uL (0.0-0.2); Absolute Eosinophil Count 0.08 10^3/uL (0.0-0.7); Absolute Lymphocyte Count 1.26 10^3/uL (1.2-3.4); Absolute Monocyte Count 0.61 10^3/uL (0.1-0.8); Absolute Neutrophil Count 4.27 10^3/uL (1.2-6.7); Basophils % 0.5; Eosinophils % 1.3; HCT 33.6 % (36.0-46.0); HGB 11.4 g/dL (11.2-15.7); Lymphocytes % 19.7; MCH 36.2 pg (27.0-33.0); MCHC 33.9 % (32.0-36.0); MCV 107 fL (80-95); MPV 10.2 fL (8.0-11.0); Monocytes % 9.6; Neutrophils % 66.9; Platelet Count 140 10^3/uL (130-400); RBC 3.15 10^6/uL (3.93-5.22); RDW 19.4 % (11.7-14.6); RDW-SD 75.7 fL; WBC 6.38 10^3/uL (4.4-10.8)
[2023-08-11 12:43] LABS: ALT 37 U/L (14-59); AST 40 U/L (15-37); Albumin 3.7 g/dL (3.4-5.0); Alkaline Phosphatase 123 U/L (46-116); Anion Gap 8.7 mmol/L (3-11); BUN 8 mg/dL (7-18); Bilirubin, Total 0.3 mg/dL (0.2-1.0); CO2 27.3 mmol/L (21.0-32.0); Calcium 9.1 mg/dL (8.5-10.1); Chloride 103 mmol/L (98-107); Estimated GFR 67.36 (mL/min/1.73m2); Glucose 126 mg/dL (74-106); Sodium 139 mmol/L (136-145)
[2023-08-11 23:11] LABS: CEA 2.9 ng/mL (See Note)
== END 2023-08-21 23:59 | disposition home or self-care (01) ==
LOC: INF 02:55
PROVIDERS: PCP Family Medicine; Visit Provider Internal Medicine Hematology & Oncology
DX: C20 Malignant neoplasm of rectum (principal); Z45.2 Encounter for adjustment and management of vascular access device
CPT/HCPCS: 36591; 80053; 82378; 85025

== ENCOUNTER 2023-09-08 03:39 | Outpatient (RCR) | payer MEDICAID, SELFPAY ==
[2023-08-22 00:16] VITALS: BP 112/71; PULSE 50; RESP 18; TEMP 36.6
[2023-09-08] MEDS: Normal Saline Flush 10 ML SYR IVP (13:14)
[2023-09-08] MEDS: Heparin 500 UNITS/5 ML SYRINGE IV (13:14)
[2023-09-08 13:35] LABS: Abs Immature Grans 0.01 10^3/uL (0.0-0.06); Absolute Basophil Count 0.03 10^3/uL (0.0-0.2); Absolute Eosinophil Count 0.07 10^3/uL (0.0-0.7); Absolute Lymphocyte Count 1.09 10^3/uL (1.2-3.4); Absolute Neutrophil Count 2.89 10^3/uL (1.2-6.7); Basophils % 0.7; Eosinophils % 1.5; HCT 35.5 % (36.0-46.0); HGB 12.1 g/dL (11.2-15.7); Immature Grans % 0.2; Lymphocytes % 23.7; MCH 37.8 pg (27.0-33.0); MCHC 34.1 % (32.0-36.0); Monocytes % 10.9; Platelet Count 212 10^3/uL (130-400); RDW 15.5 % (11.7-14.6); RDW-SD 63.6 fL; WBC 4.59 10^3/uL (4.4-10.8)
[2023-09-08 13:36] LABS: MCV 111 fL (80-95)
[2023-09-08 13:54] LABS: ALT 32 U/L (14-59); AST 27 U/L (15-37); Albumin 3.7 g/dL (3.4-5.0); Alkaline Phosphatase 86 U/L (46-116); Anion Gap 7.7 mmol/L (3-11); BUN 13 mg/dL (7-18); Bilirubin, Total 0.3 mg/dL (0.2-1.0); CO2 26.3 mmol/L (21.0-32.0); CREATININE 1.2 mg/dL (0.55-1.02); Calcium 9.2 mg/dL (8.5-10.1); Chloride 103 mmol/L (98-107); Estimated GFR 54.13 (mL/min/1.73m2); Glucose 140 mg/dL (74-106); Potassium 4.2 mmol/L (3.5-5.1); Sodium 137 mmol/L (136-145); Total Protein 7.2 g/dL (6.4-8.2)
[2023-09-08 23:07] LABS: CEA 2.6 ng/mL (See Note)
== END 2023-09-21 23:59 | disposition home or self-care (01) ==
LOC: INF 03:39
PROVIDERS: PCP Family Medicine; Visit Provider Internal Medicine Hematology & Oncology
DX: C20 Malignant neoplasm of rectum (principal); Z45.2 Encounter for adjustment and management of vascular access device
CPT/HCPCS: 36591; 80053; 82378; 85025

== ENCOUNTER → 2023-10-13 01:50 | Outpatient (CLI) | payer MEDICAID, SELFPAY ==
[2023-10-13] MEDS: Barium Sulfate 2% W/V-Creamy Vanilla Smoothie 450 ML BTL 900 ML PO (08:35)
[2023-10-13] MEDS: Omnipaque 350 MG/ML 100 ML BTL IJ (10:30)
--- NOTE | 2023-10-13 10:48 | DI.CT_ITS ---
Exam(s) CT CHEST/ABD/PEL W EXAM: CT CHEST/ABD/PEL W CLINICAL HISTORY: RECTAL CA,C20,ASSESS TREATMENT RESPONSE. TECHNIQUE: Imaging Protocol: Axial computed tomography images with coronal and sagittal reformatted images were created and reviewed CONTRAST MATERIAL: Intravenous: Omnipaque 350 Contrast volume:100 ml Oral: yes / COMPARISON: CT CT CHEST/ABD/PEL W from 07/02/2023 FINDINGS: CHEST: Tracheobronchial tree: Patent where visualized. Pulmonary parenchyma: No consolidation or dominant measurable mass. Bilateral upper lobe blebs. Sta ble bilateral pulmonary nodules. Pleura: No effusion or pneumothorax. Lymph nodes: Within normal limits. Aorta: Thoracic portion non-dilated. Heart: No pericardial effusion. Normal size. Coronary artery calcifications present. Bones: Unremarkable for age. No lytic or blastic lesions.No compression fractures. Soft tissues: Port over right upper chest wall. ABDOMEN and PELVIS: Liver: Hepatic steatosis. Status post cholecystectomy.. No measurable mass. Gallbladder and biliary tract: No evidence of stones or wall thickening. No biliary dilatation. Pancreas: Normal density, no abnormal calcifications or inflammatory process. Spleen: Normal. Kidneys: Normal size, contour and axis. No radiodense stones hip. No obstructive uropathy. No suspic ious masses seen. Adrenal glands: No masses seen. Aorta: Abdominal portion non-dilated. Lymph nodes: Within normal limits. Soft tissues: Small fatty containing umbilical hernia. Bladder: Unremarkable. Bowel: Previously noted rectal wall thickening no longer seen. Peritoneal cavity: No ascites. No focal collection. No mesenteric inflammatory response. Bones: Degenerative changes in lower lumbar spine. Reproductive organs: Status post hysterectomy. IMPRESSION: No metastatic disease in the chest, abdomen or pelvis.. Continued decrease in rectal wall thickening. No new findings . RADIATION DOSE DELIVERED: Total DLP DATA REPOSITORY: All CT scans at this facility are submitted to the National Radiology Data Registry (NRDR) Dose Index Registry (DIR) with the [employer] (ACR). RADIATION OPTIMIZATION: All CT scans at this facility use at least one of these dose optimization te chniques: automated exposure control; mA and/or kV adjustment per patient size (includes targeted exa ms where dose is matched to clinical indication); or iterative reconstruction.
== END ==
PROVIDERS: PCP Family Medicine; Visit Provider Nurse Practitioner Family
DX: C20 Malignant neoplasm of rectum (principal)
CPT/HCPCS: 74177; 71260; J3490

== ENCOUNTER 2023-10-13 03:12 | Outpatient (RCR) | payer MEDICAID, SELFPAY ==
[2023-09-22 00:21] VITALS: BP 112/71; PULSE 50; RESP 18; TEMP 36.6
[2023-10-13] MEDS: Normal Saline Flush 10 ML SYR IVP (08:25)
[2023-10-13] MEDS: Heparin 500 UNITS/5 ML SYRINGE IVP (08:27)
[2023-10-13 08:40] LABS: Abs Immature Grans 0.02 10^3/uL (0.0-0.06); Absolute Basophil Count 0.02 10^3/uL (0.0-0.2); Absolute Eosinophil Count 0.06 10^3/uL (0.0-0.7); Absolute Lymphocyte Count 1.05 10^3/uL (1.2-3.4); Absolute Monocyte Count 0.33 10^3/uL (0.1-0.8); Absolute Neutrophil Count 3.06 10^3/uL (1.2-6.7); Basophils % 0.4; Eosinophils % 1.3; HCT 39.1 % (36.0-46.0); Immature Grans % 0.4; Lymphocytes % 23.1; MCH 35.3 pg (27.0-33.0); MCHC 33.2 % (32.0-36.0); MPV 9.5 fL (8.0-11.0); Monocytes % 7.3; Neutrophils % 67.5; Platelet Count 237 10^3/uL (130-400); RBC 3.68 10^6/uL (3.93-5.22); RDW 12.8 % (11.7-14.6); RDW-SD 50.8 fL; WBC 4.54 10^3/uL (4.4-10.8)
[2023-10-13 08:49] LABS: MCV 106 fL (80-95)
[2023-10-13 09:00] LABS: ALT 29 U/L (14-59); AST 22 U/L (15-37); Albumin 3.6 g/dL (3.4-5.0); Alkaline Phosphatase 82 U/L (46-116); Anion Gap 8.2 mmol/L (3-11); BUN 13 mg/dL (7-18); Bilirubin, Total 0.5 mg/dL (0.2-1.0); CO2 27.8 mmol/L (21.0-32.0); Calcium 9.2 mg/dL (8.5-10.1); Chloride 105 mmol/L (98-107); Estimated GFR 67.36 (mL/min/1.73m2); Glucose 91 mg/dL (74-106); Sodium 141 mmol/L (136-145); Total Protein 7.4 g/dL (6.4-8.2)
== END 2023-10-21 23:59 | disposition home or self-care (01) ==
LOC: INF 03:12
PROVIDERS: Nurse Practitioner Family; PCP Family Medicine; Visit Provider Internal Medicine Hematology & Oncology
DX: C20 Malignant neoplasm of rectum (principal); Z45.2 Encounter for adjustment and management of vascular access device
CPT/HCPCS: 36591; 80053; 82378; 85025

== ENCOUNTER 2023-12-31 02:11 | Outpatient (RCR) | payer MEDICAID, SELFPAY ==
[2023-10-22 00:24] VITALS: BP 112/71; PULSE 50; RESP 18; TEMP 36.6
[2023-12-31 13:56] LABS: Abs Immature Grans 0.02 10^3/uL (0.0-0.06); Absolute Basophil Count 0.03 10^3/uL (0.0-0.2); Absolute Lymphocyte Count 1.05 10^3/uL (1.2-3.4); Absolute Monocyte Count 0.42 10^3/uL (0.1-0.8); Absolute Neutrophil Count 4.27 10^3/uL (1.2-6.7); Basophils % 0.5; Eosinophils % 1.7; HCT 40.3 % (36.0-46.0); HGB 13.2 g/dL (11.2-15.7); Immature Grans % 0.3; Lymphocytes % 17.8; MCH 31.4 pg (27.0-33.0); MCHC 32.8 % (32.0-36.0); MCV 96 fL (80-95); MPV 9.1 fL (8.0-11.0); Monocytes % 7.1; Neutrophils % 72.6; Platelet Count 254 10^3/uL (130-400); RBC 4.21 10^6/uL (3.93-5.22); RDW 13.2 % (11.7-14.6); RDW-SD 46.8 fL; WBC 5.89 10^3/uL (4.4-10.8)
[2023-12-31] MEDS: Normal Saline Flush 10 ML SYR IVP (14:04)
[2023-12-31 14:15] LABS: ALT 34 U/L (14-59); AST 25 U/L (15-37); Albumin 3.7 g/dL (3.4-5.0); Alkaline Phosphatase 82 U/L (46-116); Anion Gap 8.7 mmol/L (3-11); BUN 17 mg/dL (7-18); Bilirubin, Total 0.4 mg/dL (0.2-1.0); CO2 27.3 mmol/L (21.0-32.0); CREATININE 0.9 mg/dL (0.55-1.02); Calcium 9.4 mg/dL (8.5-10.1); Chloride 102 mmol/L (98-107); Estimated GFR 76.44 (mL/min/1.73m2); Glucose 168 mg/dL (74-106); Potassium 4.6 mmol/L (3.5-5.1); Sodium 138 mmol/L (136-145); Total Protein 7.9 g/dL (6.4-8.2)
[2023-12-31 23:16] LABS: CEA 1.7 ng/mL (See Note)
== END 2024-01-20 23:59 | disposition home or self-care (01) ==
LOC: INF 02:11
PROVIDERS: PCP Family Medicine; Visit Provider Internal Medicine Hematology & Oncology
DX: C20 Malignant neoplasm of rectum (principal)
CPT/HCPCS: 36591; 80053; 82378; 85025

== ENCOUNTER 2024-01-28 08:30 | Outpatient (RCR) | payer MEDICAID, SELFPAY ==
[2024-01-21 00:01] VITALS: BP 112/71; PULSE 50; RESP 18; TEMP 36.6
[2024-01-28] MEDS: Normal Saline Flush 10 ML SYR IVP (08:35)
[2024-01-28 09:06] LABS: Abs Immature Grans 0.02 10^3/uL (0.0-0.06); Absolute Basophil Count 0.02 10^3/uL (0.0-0.2); Absolute Eosinophil Count 0.26 10^3/uL (0.0-0.7); Absolute Lymphocyte Count 1.05 10^3/uL (1.2-3.4); Absolute Monocyte Count 0.42 10^3/uL (0.1-0.8); Absolute Neutrophil Count 3.17 10^3/uL (1.2-6.7); Basophils % 0.4; Eosinophils % 5.3; HCT 35.5 % (36.0-46.0); HGB 11.5 g/dL (11.2-15.7); Immature Grans % 0.4; Lymphocytes % 21.3; MCH 30.8 pg (27.0-33.0); MCHC 32.4 % (32.0-36.0); MCV 95 fL (80-95); Monocytes % 8.5; Neutrophils % 64.1; Platelet Count 360 10^3/uL (130-400); RBC 3.73 10^6/uL (3.93-5.22); RDW 13.5 % (11.7-14.6); RDW-SD 47.9 fL; WBC 4.94 10^3/uL (4.4-10.8)
[2024-01-28 09:28] LABS: ALT 34 U/L (14-59); AST 18 U/L (15-37); Albumin 3.4 g/dL (3.4-5.0); Alkaline Phosphatase 96 U/L (46-116); BUN 11 mg/dL (7-18); Bilirubin, Total 0.3 mg/dL (0.2-1.0); C-Reactive Protein 1.29 mg/dL (<or=0.5); Calcium 9.2 mg/dL (8.5-10.1); Chloride 103 mmol/L (98-107); Estimated GFR 67.36 (mL/min/1.73m2); Glucose 113 mg/dL (74-106); Sodium 142 mmol/L (136-145); Total Protein 7.3 g/dL (6.4-8.2)
== END 2024-02-20 23:59 | disposition home or self-care (01) ==
LOC: INF 08:30
PROVIDERS: Physician Assistant; PCP Family Medicine; Visit Provider Internal Medicine Hematology & Oncology
DX: C20 Malignant neoplasm of rectum (principal)
CPT/HCPCS: 36591; 80053; 85025; 86140

== ENCOUNTER → 2024-02-23 01:57 | Outpatient (CLI) | payer MEDICAID, SELFPAY ==
--- NOTE | 2024-02-23 06:30 | DI.CTLCSR_ITS ---
Exam(s) CT CHEST LUNG CANCER SCREEN EXAM: CT CHEST LUNG CANCER SCREEN CLINICAL HISTORY: Screening for lung cancer,former smoker, z87.891 TECHNIQUE: Imaging Protocol: Axial computed tomography images with coronal and sagittal reformatted images were created and reviewed COMPARISON: CT CT CHEST WO from 12/31/[address] CHEST/ABD/PEL W from 10/13/2023 FINDINGS: Tracheobronchial tree: Patent where visualized. Pulmonary parenchyma: No consolidation or dominant measurable mass. Mild paraseptal emphysematous chery nges are present. Lung Nodules: There is a stable 3 mm peripheral nodule in the left lower lobe (series 3, image 536). There is a stable 6 mm nodule in the right lower lobe (series 3, image 455). There is a stable 4 mm nodule in the anterior aspect of the right upper lobe (series 3, image 252). There is a stable 2 mm nodule in the anterior aspect of the right middle lobe (series 3, image 346). No new pulmonary nodu les. Mediastinum and Hemalatha: No dominant adenopathy or fluid collection. The esophagus is unremarkable. Thyroid gland: Unremarkable. Lymph nodes: Unremarkable. Pleura: No effusion or pneumothorax. Heart: The heart is not dilated. Coronary artery calcifications and/or stents are present. No perica rdial effusion. Aorta: Thoracic aorta non-dilated.Atherosclerotic calcification is present. Upper abdomen: There is limited evaluation of the upper abdomen due to lack of IV contrast. The pat ient is status post cholecystectomy. Soft Tissues: Unremarkable. The patient has a right [id number]-[id number] type catheter. Bones: Within normal limits. Prior rotator cuff surgery on the right. IMPRESSION: Stable pulmonary nodules. No new pulmonary nodules. Lung RADS Cat 2 - Benign Appearance / Behavior: Nodules with a very low likelihood of becoming a clin ically active cancer due to size or lack of growth Lung-RADS 1.0 CATEGORIES: Category 0 - Prior chest CT exam(s) being located for comparison. Category 1 - Annual screening in 12 months. No nodules or definitely benign nodules. Category 2 - Annual screening in 12 months. Benign appearance. Nodules with low likelihood of becomin g active cancer. Category 3 - 6-month follow-up. Probably benign. Short-term follow-up suggested. Nodules with low lik elihood of becoming active cancer. Category 4A - 3-month follow-up and CT/PET if >8 mm in size. Suspicious finding. Findings which requi re additional testing. Category 4B - Findings which require additional testing and tissue sampling. Suspicious finding. Category 4X - Category 3 or 4 nodules with additional features or imaging findings that increases the suspicion of malignancy. Modifier S- Potentially clinically significant finding. (Non lung cancer) RADIATION DOSE DELIVERED: Total DLP Total DLP DATA REPOSITORY: All CT scans at this facility are submitted to the National Radiology Data Registry (NRDR) Dose Index Registry (DIR) with the [employer] (ACR). RADIATION OPTIMIZATION: All CT scans at this facility use at least one of these dose optimization te chniques: automated exposure control; mA and/or kV adjustment per patient size (includes targeted exa ms where dose is matched to clinical indication); or iterative reconstruction.
== END ==
PROVIDERS: PCP Family Medicine; Visit Provider Family Medicine
DX: Z12.2 Encounter for screening for malignant neoplasm of respiratory organs (principal); J43.8 Other emphysema; R91.8 Other nonspecific abnormal finding of lung field; Z87.891 Personal history of nicotine dependence
CPT/HCPCS: 71271

== ENCOUNTER → 2024-03-09 01:42 | Outpatient (CLI) | payer MEDICAID, SELFPAY ==
--- NOTE | 2024-03-09 14:36 | DI.MAMMO_ITS ---
Exam(s) MAMMO SCREENING EXAM: MAMMO SCREENING CLINICAL HISTORY: screening,z12.39 TECHNIQUE: Bilateral full field digital CC and MLO mammographic images were obtained with 3D tomosyn thesis and utilizing computer aided detection (CAD). COMPARISON: Available for comparison. FINDINGS: Masses/Architectural Distortion: None seen. Microcalcifications: No suspicious pleomorphic-type are seen. Skin Thickening/Nipple Retraction: None. IMPRESSION: 1. No significant interval change with no specific features of malignancy noted. 2. Unless there is more urgent need, screening mammography is recommended, as per [employer] guidelines. BI-RADS Category 1 - Negative Breast Density - Category B - Scattered areas of fibroglandular density Breast density category C or D implies that the patient has dense breast tissue. Dense breast tissue is very common and is not abnormal but dense breast tissue can make it harder to find cancer on a ma mmogram. Also, dense breast tissue may increase their breast cancer risk. This information about the result of the mammogram report was provided to the patient to raise their awareness. Use this report when you speak with the patient about their risks for breast cancer, which includes their family hist ory. At that time, you may recommend for more screening tests (Ultrasound or MRI) as they might be us eful based on their risk. A negative radiographic report should not delay biopsy if a dominant or clinically suspicious mass is present. Up to ten percent of cancers are not identified on mammography. A negative report may reinforce clinical impression. Adenosis and dense breasts may obscure an underlying neoplasm. False positive reports average 6 to 10%. Patient will receive a letter notifying them of these results.
== END ==
PROVIDERS: PCP Family Medicine; Visit Provider Family Medicine
DX: Z12.31 Encounter for screening mammogram for malignant neoplasm of breast (principal)
CPT/HCPCS: 77063; 77067

== ENCOUNTER 2024-05-12 13:42 | Outpatient (RCR) | payer MEDICAID, SELFPAY ==
[2024-04-22 00:15] VITALS: BP 112/71; PULSE 50; RESP 18; TEMP 36.6
[2024-05-12] MEDS: Normal Saline Flush 10 ML SYR IVP (14:00)
[2024-05-12 14:15] LABS: Abs Immature Grans 0.01 10^3/uL (0.0-0.06); Absolute Basophil Count 0.03 10^3/uL (0.0-0.2); Absolute Eosinophil Count 0.12 10^3/uL (0.0-0.7); Absolute Lymphocyte Count 1.24 10^3/uL (1.2-3.4); Absolute Monocyte Count 0.36 10^3/uL (0.1-0.8); Absolute Neutrophil Count 4.04 10^3/uL (1.2-6.7); Basophils % 0.5 %; Eosinophils % 2.1 %; HCT 36.9 % (36.0-46.0); HGB 11.8 g/dL (11.2-15.7); Immature Grans % 0.2 %; Lymphocytes % 21.4 %; MCH 31.2 pg (27.0-33.0); MCV 98 fL (80-95); MPV 9.6 fL (8.0-11.0); Monocytes % 6.2 %; Neutrophils % 69.6 %; Platelet Count 318 10^3/uL (130-400); RBC 3.78 10^6/uL (3.93-5.22); RDW 14.5 % (11.7-14.6); RDW-SD 51.9 fL
[2024-05-12 14:37] LABS: ALT 23 U/L (14-59); AST 16 U/L (15-37); Albumin 3.4 g/dL (3.4-5.0); Alkaline Phosphatase 85 U/L (46-116); Anion Gap 8.8 mmol/L (3-11); BUN 9 mg/dL (7-18); Bilirubin, Total 0.31 mg/dL (0.2-1.0); CO2 28.2 mmol/L (21.0-32.0); CREATININE 0.9 mg/dL (0.55-1.02); Calcium 7.9 mg/dL (8.5-10.1); Chloride 107 mmol/L (98-107); Estimated GFR 75.97 (mL/min/1.73m2); Glucose 123 mg/dL (74-106); Potassium 3.6 mmol/L (3.5-5.1); Sodium 144 mmol/L (136-145); Total Protein 7.2 g/dL (6.4-8.2)
[2024-05-15 10:49] LABS: CEA 1.9 ng/mL (See Note)
== END 2024-05-21 23:59 | disposition home or self-care (01) ==
LOC: INF 13:42
PROVIDERS: PCP Family Medicine; Visit Provider Internal Medicine Hematology & Oncology
DX: Z45.2 Encounter for adjustment and management of vascular access device (principal); C20 Malignant neoplasm of rectum
CPT/HCPCS: 36591; 80053; 82378; 85025

== ENCOUNTER 2024-08-02 01:58 | Outpatient (CLI) | payer MEDICAID, SELFPAY ==
--- NOTE | 2024-08-02 | DI.CT_ITS ---
Exam(s) CT CHEST/ABD/PEL W EXAM: CT CHEST/ABD/PEL W CLINICAL HISTORY: C20 RECTAL CANCER. TECHNIQUE: Imaging Protocol: Axial computed tomography images with coronal and sagittal reformatted images were created and reviewed CONTRAST MATERIAL: Intravenous: Omnipaque 350 Contrast volume:100 ml Oral: yes 450 mL dilute barium. COMPARISON: CT CT CHEST/ABD/PEL W from 07/02/[address] CHEST/ABD/PEL W from 10/13/[address] CHEST LUNG CANCER SCREEN from 02/23/2024 FINDINGS: CHEST: Tracheobronchial tree: Patent. Pulmonary parenchyma: No consolidation or dominant measurable mass. Mild emphysematous changes at th e lung apices. Stable pulmonary nodules. The largest is in the lateral right lower lobe measuring 6 millimeters. Pleura: No effusion or pneumothorax. Mediastinum: Within normal limits. Aorta: Thoracic portion non-dilated. Pulmonary arteries: No visible emboli. Heart: Normal size. [id number] coronary artery calcifications. No pericardial effusion. Bones: Unremarkable for age. No lytic or blastic lesions.No compression fractures. Soft tissues: Unremarkable. ABDOMEN and PELVIS: Liver: Normal density. No measurable mass. Gallbladder and biliary tract: Status post cholecystectomy. No biliary dilatation. Pancreas: Normal density, no abnormal calcifications or inflammatory process. Spleen: Normal. Kidneys: Normal size, contour and axis. No radiodense stones. No obstructive uropathy. No suspicious masses seen. Adrenal glands: No masses seen. Aorta: Abdominal portion non-dilated. Lymph nodes: Within normal limits. Soft tissues: Scarring right anterior abdominal wall. Small fatty containing umbilical hernia. Bladder: Unremarkable. Bowel: No obstruction or bowel wall thickening. Rectal anastomosis is again noted. There is now pres acral soft tissue thickening measuring 3 cm in AP dimension. No adjacent bony destruction. Peritoneal cavity: No ascites. No focal collection. No mesenteric inflammatory response. No free ai r. Bones: Unremarkable for age. Reproductive organs: Within normal limits. IMPRESSION: No evidence of metastatic disease in the chest. New presacral soft tissue thickening. This lies directly adjacent to the rectal anastomosis. RADIATION DOSE DELIVERED: Total DLP DATA REPOSITORY: All CT scans at this facility are submitted to the National Radiology Data Registry (NRDR) Dose Index Registry (DIR) with the [employer] (ACR). RADIATION OPTIMIZATION: All CT scans at this facility use at least one of these dose optimization te chniques: automated exposure control; mA and/or kV adjustment per patient size (includes targeted exa ms where dose is matched to clinical indication); or iterative reconstruction.
[2024-08-02] MEDS: Barium Sulfate 2% W/V-Berry Smoothie 450 ML BTL PO ×3 (08:26→08:35)
[2024-08-02 08:48] LABS: Abs Immature Grans 0.01 10^3/uL (0.0-0.06); Absolute Basophil Count 0.04 10^3/uL (0.0-0.2); Absolute Eosinophil Count 0.13 10^3/uL (0.0-0.7); Absolute Lymphocyte Count 1.48 10^3/uL (1.2-3.4); Absolute Monocyte Count 0.44 10^3/uL (0.1-0.8); Basophils % 0.8 %; Eosinophils % 2.5 %; HCT 38.3 % (36.0-46.0); HGB 12.4 g/dL (11.2-15.7); Immature Grans % 0.2 %; MCH 30.2 pg (27.0-33.0); MCHC 32.4 % (32.0-36.0); MCV 93 fL (80-95); MPV 9.3 fL (8.0-11.0); Monocytes % 8.6 %; Neutrophils % 58.9 %; Platelet Count 317 10^3/uL (130-400); RDW 14.9 % (11.7-14.6); RDW-SD 51.3 fL
[2024-08-02 09:02] LABS: ALT 24 U/L (14-59); AST 23 U/L (15-37); Albumin 3.6 g/dL (3.4-5.0); Alkaline Phosphatase 71 U/L (46-116); Anion Gap 7.5 mmol/L (3-11); BUN 17 mg/dL (7-18); CO2 28.5 mmol/L (21.0-32.0); Calcium 9.4 mg/dL (8.5-10.1); Chloride 105 mmol/L (98-107); Estimated GFR 66.95 (mL/min/1.73m2); Glucose 106 mg/dL (74-106); Potassium 3.9 mmol/L (3.5-5.1); Sodium 141 mmol/L (136-145); Total Protein 7.5 g/dL (6.4-8.2)
[2024-08-02] MEDS: Normal Saline - Diluent 50 ML VIAL IJ (11:26)
[2024-08-02] MEDS: Omnipaque 350 MG/ML 100 ML BTL IJ (11:27)
[2024-08-02 18:36] LABS: CEA 1.5 ng/mL (See Note)
== END 2024-08-02 02:18 ==
LOC: DI 01:58
PROVIDERS: PCP Family Medicine; Visit Provider Internal Medicine Hematology & Oncology
DX: C20 Malignant neoplasm of rectum (principal)
CPT/HCPCS: 74177; 80053; 71260; 82378; 85025; J3490

== ENCOUNTER 2024-12-05 03:54 | Outpatient (CLI) | payer MEDICAID, SELFPAY ==
[2024-12-05 10:55] LABS: Abs Immature Grans 0.03 10^3/uL (0.0-0.06); Absolute Basophil Count 0.03 10^3/uL (0.0-0.2); Absolute Eosinophil Count 0.17 10^3/uL (0.0-0.7); Absolute Lymphocyte Count 1.28 10^3/uL (1.2-3.4); Absolute Monocyte Count 0.45 10^3/uL (0.1-0.8); Absolute Neutrophil Count 4.77 10^3/uL (1.2-6.7); Basophils % 0.4 %; Eosinophils % 2.5 %; HGB 13.5 g/dL (11.2-15.7); Immature Grans % 0.4 %; MCH 30.4 pg (27.0-33.0); MCHC 32.1 % (32.0-36.0); MCV 95 fL (80-95); MPV 8.9 fL (8.0-11.0); Monocytes % 6.7 %; Platelet Count 298 10^3/uL (130-400); RBC 4.44 10^6/uL (3.93-5.22); RDW 13.9 % (11.7-14.6); RDW-SD 48.8 fL; WBC 6.73 10^3/uL (4.4-10.8)
[2024-12-05 11:12] LABS: ALT 19 U/L (14-59); AST 14 U/L (15-37); Albumin 3.6 g/dL (3.4-5.0); Alkaline Phosphatase 77 U/L (46-116); Anion Gap 7.8 mmol/L (3-11); BUN 18 mg/dL (7-18); Bilirubin, Total 0.19 mg/dL (0.2-1.0); CO2 29.2 mmol/L (21.0-32.0); CREATININE 1.2 mg/dL (0.55-1.02); Calcium 9.7 mg/dL (8.5-10.1); Chloride 105 mmol/L (98-107); Estimated GFR 53.79 (mL/min/1.73m2); Glucose 107 mg/dL (74-106); Sodium 142 mmol/L (136-145); Total Protein 7.9 g/dL (6.4-8.2)
[2024-12-05 18:36] LABS: CEA 1.8 ng/mL (See Note)
== END 2024-12-05 03:55 | disposition home or self-care (01) ==
LOC: LBO 03:54
PROVIDERS: PCP Family Medicine; Visit Provider Internal Medicine Hematology & Oncology
DX: C20 Malignant neoplasm of rectum (principal)
CPT/HCPCS: 36415; 80053; 82378; 85025

== ENCOUNTER 2024-12-05 12:21 | Emergency (ER) | payer MEDICAID, SELFPAY ==
[2024-12-05 12:24] VITALS: BP 99/59; PULSE 73; TEMP 36.4; O2SAT 98
--- NOTE | 2024-12-05 12:39 | W.ED.GENAD ---
Discharge Plan Disposition Patient Disposition: Home Condition: Stable Discharge Details Clinical Impression: Right wrist tendinitis Primary Care Provider: Raina Toscano ED Provider: Srini Bhatti Home Meds and New Rx's Prescriptions: Continued nystatin 100,000 unit/gram ointment 1 applic topical BID Qty: 30 0RF albuterol sulfate [ProAir HFA] 90 mcg/actuation HFA aerosol inhaler 1 - 2 puff Inhalation Q6H PRN Qty: 1 5RF ondansetron 8 mg tablet,disintegrating 8 mg translingual Q8H PRN (Reason: nausea and vomiting) Patient Comments: DISSOLVE ONE TABLET ON THE TONGUE EVERY 8 HOURS NEEDED FOR NAUSEA prochlorperazine maleate 10 mg tablet 10 mg PO Q6H PRN (Reason: nausea and vomiting) Patient Comments: TAKE ONE TABLET BY MOUTH EVERY 6 HOURS NEEDED FOR NAUSEA omeprazole 40 mg capsule,delayed release(DR/EC) 40 mg PO DAILY Qty: 90 1RF zolpidem 10 mg tablet 10 mg PO QHS PRN (Reason: sleep) Qty: 30 1RF bupropion HCl 75 mg tablet 75 mg PO BID Qty: 60 3RF Rx Instructions: administer 6 hours apart naproxen 250 mg tablet 500 mg PO DAILY Rx Instructions: DOES NOT ALWAYS TAKE IT NIGHT acetaminophen 500 mg capsule 500 mg PO Q6H PRN (Reason: pain) Qty: 30 0RF loratadine 10 mg capsule 10 mg PO DAILY Discharge Instructions Instructions: Tendinopathy Additional Instructions: You were seen in the emergency department for the tendinitis of your right wrist. Please remain in a thumb spica splint even while sleeping. Please rest, ice, compress and elevate. Take Tylenol and Aleve as needed for pain, follow-up with orthopedics by PCP referral, please return for any signs of neurovascular compromise to right hand. Referrals: [facility] [Provider Group] Raina Toscano MD [Primary Care Provider] - Discharge Data Discharge Date/Time-TO BE ENTERED AT DEPARTURE: 12/05/24 14:11 HPI General Date/Time Provider Initiated Documentation: 12/05/24 12:39. HPI Narrative: 54 year-old female presents to ED today by POV/ambulating with a chief complaint of R wrist pain, feels her wrist has been broken since mid-July, R-hand dominant. Quality described as pain at the extensor tendon of the thumb, traveling up to mid-forearm, no radiation to numbness/tingling, skin changes, swelling, deformity, denies siginficant trauma to area- onset was lifting a nightstand. Severity is described as moderate. Palliating factors include tried a OTC brace and Tylenol/ibuprofen but not improving. Provoking factors include nothing specific- movement. Patient not anticoagulated. Related Data Home Medications ?Medication ?Instructions ?Recorded ?Confirmed acetaminophen 500 mg capsule 500 mg PO Q6H PRN pain #30 caps 01/01/21 12/05/24 albuterol sulfate 90 mcg/actuation 1 - 2 puff inhalation Q6H PRN ##1 03/02/23 12/05/24 aerosol inhaler (ProAir HFA) naproxen 250 mg tablet 500 mg PO DAILY 03/02/23 12/05/24 nystatin 100,000 unit/gram topical 1 applic topical BID #30 grams 03/02/23 12/05/24 ointment omeprazole 40 mg capsule,delayed 40 mg PO DAILY #90 caps 10/08/23 12/05/24 release ondansetron 8 mg disintegrating 8 mg translingual Q8H PRN nausea 10/08/23 12/05/24 tablet and vomiting prochlorperazine maleate 10 mg 10 mg PO Q6H PRN nausea and 10/08/23 12/05/24 tablet vomiting bupropion HCl 75 mg tablet 75 mg PO BID #60 tabs 09/19/24 12/05/24 zolpidem 10 mg tablet 10 mg PO QHS PRN sleep #30 tabs 09/19/24 12/05/24 loratadine 10 mg capsule 10 mg PO DAILY 12/05/24 12/05/24 Previous Rx's ?Medication ?Instructions ?Recorded acetaminophen 500 mg capsule 500 mg PO Q6H PRN pain #30 caps 01/01/21 albuterol sulfate 90 mcg/actuation 1 - 2 puff inhalation Q6H PRN ##1 03/02/23 aerosol inhaler (ProAir HFA) nystatin 100,000 unit/gram topical 1 applic topical BID #30 grams 03/02/23 ointment omeprazole 40 mg capsule,delayed 40 mg PO DAILY #90 caps 10/08/23 release bupropion HCl 75 mg tablet 75 mg PO BID #60 tabs 09/19/24 zolpidem 10 mg tablet 10 mg PO QHS PRN sleep #30 tabs 09/19/24 Allergies Allergy/AdvReac Type Severity Reaction Status Date / Time sertraline HCl (From Zoloft) Allergy Severe Anaphylaxsi Verified 12/05/24 12:30 s adhesive tape Allergy Skin Rash Verified 12/05/24 12:30 morphine AdvReac Severe Nausea, Verified 12/05/24 12:30 vomiting severe ibuprofen AdvReac Intermediate Nausea Verified 12/05/24 12:30 General Stated Complaint: Orthopedic RUBY: 3 Review of Systems All systems reviewed & are unremarkable except as noted in HPI and below Exam Narrative Exam Narrative: GENERAL APPEARANCE: Well-nourished, non-toxic, awake and alert, atraumatic, no acute distress. SKIN: Warm, pink, dry, intact, without rashes/lesions/ulcerations. HEAD: Normocephalic, atraumatic, normal hair distribution for gender/age. EYES: Normal conjunctiva, no exudates on lids/lashes. ENT: Nares patent, no circumoral cyanosis, no facial swelling NECK: Supple, trachea midline, painless cervical ROM. LUNGS/CHEST: Non-labored respirations, normal A/P diameter, symmetrical expansion, no chest wall deformity HEART (CV/PV): Regular rate, no peripheral edema, no JVD. ABDOMEN: Soft, non-distended, no guarding. MSK: Normal ROM, no swelling/deformity to bilateral UEs or LEs, moving all extremities without weakness, no cyanosis, spine midline without tenderness, normal curvature, extensor tendon of the thumb without deformity, able to supinate pronate, sensation and capillary refill intact, right radial pulse 2+, no ecchymosis, swelling or deformity, Tinnels negative NEURO: Mental Status AAOx4 - alert to person, place, time, events No facial droop, no forehead involvement. Motor: No focal weakness - strength 5/5 in bilateral UEs and LEs, proximal and distal, symmetric. Sensory: sensation intact to light touch globally. Gait normal: patient ambulated without ataxia into ED room. PSYCH: euthymic, cooperative, pleasant, appropriate speech Course Vital Signs Vital signs: Vital Signs Temperature 36.4 C 12/05/24 12:24 Pulse 73 12/05/24 12:24 Blood Pressure 99/59 L 12/05/24 12:24 Pulse Oximetry 98 12/05/24 12:24 Temperature 36.4 C 12/05/24 12:24 Pulse 73 12/05/24 12:24 Blood Pressure 99/59 L 12/05/24 12:24 Blood Pressure Position Sitting 12/05/24 12:24 Pulse Oximetry 98 12/05/24 12:24 Oxygen Delivery Method Room Air 12/05/24 12:24 Oxygen Flow Rate 0 12/05/24 12:24 Pain Level 7 12/05/24 12:24 Medical Decision Making This dictation utilizes [id number] dictation software and may contain unedited grammatical errors. 54 year-old female presents to ED today by POV/ambulating with a chief complaint of R wrist pain, feels her wrist has been broken since mid-July, R-hand dominant. Quality described as pain at the extensor tendon of the thumb, traveling up to mid-forearm, no radiation to numbness/tingling, skin changes, swelling, deformity, denies siginficant trauma to area- onset was lifting a nightstand. Severity is described as moderate. Palliating factors include tried a OTC brace and Tylenol/ibuprofen but not improving. Provoking factors include nothing specific- movement. Patients' medical history: Noncontributory. Family and social history: Noncontributory. Pertinent exam findings / vital signs include pain along the extensor tendon of the thumb without deformity, able to supinate pronate, sensation and capillary refill intact, right radial pulse 2+, no ecchymosis, swelling or deformity, Tinnels negative. Differential / pathologies of concern include tendinitis, sprain, strain, not fracture. Diagnostic studies of: -XR R Wrist - no acute fracture seen. Interventions of: -thumb spica brace, recommend RICE therapy, OTC analgesics, f/u with ortho by PCP referral for persistent symptoms. ED Course/Assessment/Plan: 54-year-old female presents with tendinopathy of right thumb extensor tendon ongoing for months, feels that it is fractured, clearly no mechanism for fracture no signs of fracture on exam, x-rays negative. Provided thumb spica brace for tendinopathy recommend RICE therapy and therapeutic dosing of Tylenol and ibuprofen and follow-up with orthopedic. Findings not consistent with fracture or neurovascular compromise. Disposition of right wrist tendinitis. Patient verbalized understanding of the plan and return to ED criteria and engaged in shared decision making. Medical Records Medical records reviewed: Yes I reviewed the patient's medical records. Imaging Data Radiologic Study: Attestation: I personally reviewed and interpreted this imaging study as follows: Imaging: X-Ray Radiologist's impression: EXAM: XR WRIST RT COMPL NAVICULAR CLINICAL HISTORY: R wrist pain. TECHNIQUE: 2D digital imaging was performed. Three views. COMPARISON: CR XR HAND LT COMPLETE from 01/08/2020 FINDINGS: BONES: No acute fracture is present. No bony destructive lesion is seen. JOINTS: The carpal bones are normally aligned. Minimal degenerative changes. SOFT TISSUE: Normal. IMPRESSION: Unremarkable radiographs of the right wrist. Quality:SDOH Health Related Social Needs: Health related social needs details see comment above. PFSH All Active Problems (Updated 12/05/24 @ 13:31 by SADIQ Lopez) Right wrist tendinitis (Acute) Ileus (Acute ~03/2024) C. difficile diarrhea (Acute ~03/2024) Current vaping on some days (Acute) Asthma (Chronic) seen on PFTs; manages with prn albuterol. 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 Rectal cancer (Acute 01/2023) treated with chemo and radiation; under surveillance, every 3 months with [facility] Osteoarthritis of both knees (Acute 04/04/18) Severe Injected: 10/07/2019 Multiple years of injection therapy every 3 months. Gastroesophageal reflux disease (Acute) Cannabis dependence (Chronic) Medical History (Updated 12/05/24 @ 13:31 by SADIQ Lopez) Tobacco dependence due to cigarettes 2-3 cpd Sinus bradycardia stress test normal. 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 Negative CXR Full thickness rotator cuff tear (08/10/14) s/p repair 08/07/14; right Celiac disease endoscopy proven; pt reports mild, does not always follow gluten free diet. Surgical History (Updated 04/24/24 @ 17:07 by Tiffanie Cadena RN) Status post reversal of ileostomy (~03/2024) closure of enterostomy, rescetion and asnastomosis other than colorectal S/P hernia repair (~03/2024) Parastomal Mesh placement, trunk History of colonoscopy History of bilateral ligation of fallopian tubes Status post anterior cruciate ligament surgery Status post cholecystectomy Status post laparoscopic hysterectomy S/P rotator cuff repair (08/06/14) right; anterior acromioplasty H/O surgical procedure A. right and left distal clavicle resection b. right knee arthroscopy c. lap cholecystectomy d. tubal ligation e. tonsillectomy and adenoidectomy f. myringotomy and tubes g. LAVH h. colonoscopy i. gastroscopy j. rotator cuff repair 08/06/2014 Family History (Updated 03/08/24 @ 14:30 by Raina Toscano MD) Mother Age: 73 Diabetes Depression Leukemia Father , SUICIDE Depression Substance use disorder Brother Age: 43 Alcohol use disorder Depression Brother Alcohol use disorder Depression Daughter Age: 33 Alcohol use disorder Asthma Depression Substance use disorder Daughter Age: 35 Depression Substance use disorder Crohn's colitis Maternal Grandfather Alcohol use disorder Lung cancer Paternal Grandfather Diabetes Maternal Grandmother Diabetes Ovarian cancer Paternal Grandmother Cardiac disease Social History (Updated 10/08/23 @ 09:24 by Raina Toscano MD) Smoking/Tobacco Use Status: Former Tobacco Use Tobacco: How many years used: 40 Quit status: has quit before Second Hand Exposure: Yes Counseling given: provider counseling Smoking risk assessment performed?: Yes Alcohol Intake: current Alcohol Intake frequency: a few times a month Alcohol type: beer, wine and hard liquor Drug use: Daily Substance use type: marijuana Details: Hx Cocaine use-sober 10 years Marijuana-daily Caregiver/Support person: No Household members: family Housing: house Number of Children: 2 number of grandchildren: 7 Communication Needs: None Do you need help understanding health information?: Rarely current occupation: On disability, previously worked at [employer] Pets and animals: Yes Pets and animals: cat(s) and dog(s) Sexually active: Yes Do you think of yourself as: bisexual Current gender identity: female What is your relationship status?: How often do you talk on the phone with friends or family?: three or more times per week How often do you get together with friends or relatives?: twice per week How often do you attend orthodoxy or anabaptism services?: decline to answer Do you belong to any clubs or organized social groups?: no Panel score (0-1 are the most socially isolated patients): 1 What type of physical activity do you participate in: walking Duration: > 90 minutes/day Frequency: 3-4 times per week Nancy/Moravian: Wiccan Special nancy needs: No Seatbelt use: sometimes Drive 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 PAWSS Have you Been Recently Intoxicated or Drunk Within the Last 30 days?: No Have you Ever Experienced Previous Episodes of Alcohol Withdrawal?: No Have you ever Experienced Withdrawal Seizures?: No Have you ever Experienced Delirium Tremens(DT)s?: No Have you ever undergone Alcohol Rehabilitation Treatment (i.e, inpt ot outpatient treatment programs)?: No Have you ever Experienced Blackouts?: No Have you ever Combined Alcohol with other Downers within the last 90 days?: No Have you ever Combined Alcohol with any other Substance of Abuse during the last 90 days?: No Positive Blood Alcohol level on Presentation? [PCS.BAL]: No Evidence of Increased Autonomic Activity (i.e. HR>120, tremor, sweating, agitation, nausea)?: No Result: 0
--- NOTE | 2024-12-05 12:45 | DI.RAD_ITS ---
Exam(s) XR WRIST RT COMPL NAVICULAR EXAM: XR WRIST RT COMPL NAVICULAR CLINICAL HISTORY: R wrist pain. TECHNIQUE: 2D digital imaging was performed. Three views. COMPARISON: CR XR HAND LT COMPLETE from 01/08/2020 FINDINGS: BONES: No acute fracture is present. No bony destructive lesion is seen. JOINTS: The carpal bones are normally aligned. Minimal degenerative changes. SOFT TISSUE: Normal. IMPRESSION: Unremarkable radiographs of the right wrist. DATA REPOSITORY: RADIATION DOSE DELIVERED:
[2024-12-05 14:02] VITALS: BP 132/80; PULSE 72; RESP 17; TEMP 36.6; O2SAT 99
== END 2024-12-05 14:11 | disposition home or self-care (01) ==
PROVIDERS: Emergency Provider Physician Assistant; PCP Family Medicine
DX: M67.833 Other specified disorders of tendon, right wrist (principal); Z87.891 Personal history of nicotine dependence
CPT/HCPCS: 99283; 73110

== ENCOUNTER 2025-08-22 11:58 | Outpatient (CLI) | payer MEDICAID, SELFPAY ==
--- NOTE | 2025-08-22 11:45 | DI.RAD_ITS ---
Exam(s) XR CHEST 2V PA LATERAL EXAM: XR CHEST 2V PA LATERAL CLINICAL HISTORY: cough, r/o pneumonia, R05.9 TECHNIQUE: 2D digital imaging was performed. Two views. COMPARISON: No exams were available for comparison FINDINGS: HEART: Normal size. Aorta: Not dilated. PULMONARY VASCULATURE: Normal. MEDIASTINUM: Unremarkable. LUNGS: Clear. PLEURAL SPACE: No pleural effusion or pneumothorax. BONE:Unremarkable for age. SOFT TISSUES: Unremarkable. IMPRESSION: No acute abnormality. DATA REPOSITORY: RADIATION DOSE DELIVERED:
== END 2025-08-22 12:18 ==
LOC: DI 11:58
PROVIDERS: PCP Family Medicine; Visit Provider Physician Assistant
DX: R05.9 Cough, unspecified (principal)
CPT/HCPCS: 71046